=== PATIENT | female | born 1945 | race Caucasian/White ===

== ENCOUNTER 2020-12-18 12:45 | Outpatient (CLI) | payer MEDICARE | END 2020-12-18 12:46 | disposition home or self-care (01) | LOC: LAB.S 12:45 | PROVIDERS: ATTEND Physician Assistant Surgical | DX: R19.7 Diarrhea, unspecified (principal); R10.30 Lower abdominal pain, unspecified; R63.4 Abnormal weight loss; Z53.9 Procedure and treatment not carried out, unspecified reason ==

== ENCOUNTER 2020-12-18 13:00 | Outpatient (CLI) | payer MEDICARE | END 2020-12-18 23:59 | disposition home or self-care (01) | LOC: LAB.S 13:00 | PROVIDERS: ATTEND Physician Assistant Surgical | DX: R19.7 Diarrhea, unspecified (principal); R10.30 Lower abdominal pain, unspecified; R63.4 Abnormal weight loss | CPT/HCPCS: 36415; 85651 ==

== ENCOUNTER 2020-12-30 08:41 | Outpatient (CLI) | payer MEDICARE | END 2020-12-30 23:59 | disposition home or self-care (01) | LOC: LAB.R 08:41 | PROVIDERS: ATTEND Physician Assistant Surgical | DX: R19.7 Diarrhea, unspecified (principal) | CPT/HCPCS: 87329; 87493 ==

== ENCOUNTER 2021-01-05 08:00 | Outpatient (CLI) | payer MEDICARE | END 2021-01-05 23:59 | disposition home or self-care (01) | LOC: LAB.S 08:00 | PROVIDERS: ATTEND Physician Assistant Surgical | DX: R19.7 Diarrhea, unspecified (principal) | CPT/HCPCS: 87493 ==

== ENCOUNTER 2021-02-10 13:00 | Emergency (ER) | payer MEDICARE ==
[2021-02-10] MEDS ORDERED: SODIUM CHLORIDE 0.9% 1,000 ML IV STA ×2 (14:47→16:13)
[2021-02-10] MEDS ORDERED: HYDROmorphone 1 MG/ML CARPUJECT IVP STA (14:47)
[2021-02-10] MEDS ORDERED: ONDANSETRON 4 MG/2 ML VIAL IVP STA (14:47)
[2021-02-10 14:49] LABS: GLUCOSE, URINE (UA) NEGATIVE (NEGATIVE); KETONES,URINE (UA) TRACE mg/dL (NEGATIVE); LEUKOCYTE ESTERASE, URINE TRACE (NEGATIVE); NITRITE,URINE NEGATIVE (NEGATIVE); OCCULT BLOOD,URINE NEGATIVE (NEGATIVE); PROTEIN,URINE NEGATIVE (NEGATIVE); UROBILINOGEN,URINE 1 (NORMAL) E.U./dL (NORMAL)
--- NOTE | 2021-02-10 14:54 | ED Physician Documentation ---
History of Present Illness - Stated complaint Stated Complaint: RT SIDE/BACK PX - Chief complaint Chief Complaint: Back Pain - Additonal information Additional information: 75-year-old female who has a history of hypertension, diabetes, paroxysmal atrial fib who presents to the emergency department with 4 days of right-sided abdominal and low back pain. She reports that the pain is worse when laying flat. She denies any chest pain or dyspnea. She reports that she has some burning before she urinates but none during. She is also reporting 4 days of diarrhea. No melena or hematochezia. She reports she was supposed to have a colonoscopy on 01 January but due to very delays she canceled the procedure. She has never had a colonoscopy. Patient does have a history of spinal fusion in the lumbar region 2014 secondary to sciatica. She did sustain a DVT postoperatively. However she is no longer anticoagulated. She also underwent an ablation for her atrial fibrillation in 2013. She only occasionally has runs of atrial fib and is not having any new palpitations. Again she is not anticoagulated Patient is chronically debilitated secondary to the lumbar fusion. She has chronic lower extremity edema which is unchanged. She also has leg weakness for which she does see physical therapy. She denies any saddle anesthesia. No recent fevers. pmh: htn, dm, Paroxysmal atrial fib status post ablation 2013. meds: atenolol, metformin, losartan, levothyroxine, omeprazole We do note soft blood pressures here in the emergency department in the 90s and low 100s. Patient reports to this provider that she has always had low blood pressures and it is not uncommon for her to have measurements in the 80s even. She denies feeling short of air or dyspneic. No dizziness. Review of Systems Constitutional: denies: Fever, Chills, Myalgias Eyes: reports: Reviewed and negative Ears: reports: Reviewed and negative Nose: reports: Rhinorrhea / runny nose, Congestion Throat: reports: Reviewed and negative Cardiac: reports: Pedal edema (Chronic bilateral lower extremity edema unchanged). denies: Chest pain / pressure, Palpitations, Calf pain Respiratory: denies: Dyspnea, Cough GI: reports: Abdominal Pain, Nausea. denies: Vomiting, Constipation, Diarrhea : reports: Dysuria Skin: denies: Rash, Lesions Musculoskeletal: denies: Neck pain, Back pain Neurologic: denies: Generalized weakness, Focal weakness, Numbness PD PAST MEDICAL HISTORY - Present Medications Home Medications: Ambulatory Orders Medication Instructions Recorded Confirmed Ciprofloxacin HCl [Cipro] 500 mg PO BID #14 tablet 02/10/21 metroNIDAZOLE [Flagyl] 500 mg PO BID 7 Days #14 tablet 02/10/21 - Allergies Allergies/Adverse Reactions: Allergies Allergy/AdvReac Type Severity Reaction Status Date / Time ampicillin Allergy Rash Verified 02/10/21 13:13 cephalexin Allergy Rash Verified 02/10/21 13:13 clindamycin Allergy Rash Verified 02/10/21 13:13 iodine Allergy Rash Verified 02/10/21 13:13 Penicillins Allergy Rash Verified 02/10/21 13:13 PD ED PE EXPANDED - General General: Alert, Well developed/nourished, In Pain, Other (morbid obesity) - Neck Neck: Supple w/out meningeal sx. No: Adenopathy - Cardiac Cardiac: Regular Rate, Radial strong equal, Pedal strong equal, Cap refill < 2 sec. No: Murmur Present - Respiratory Respiratory: Clear to ausultation hamida. No: Distress, Labored - Abdomen Abdomen: Normal Bowel sounds, Tender to palpation (Tenderness to the right flank and right lower quadrant. Body exam is somewhat limited secondary to body habitus and excessively large pannus.) - Back Back: No: Vertebral tenderness (Noted lower lumbar surgical incision well approximated. No midline spinous process tenderness noted. No lower lumbar paraspinous tenderness elicited.), Soft tissue tenderness - Derm Derm: Normal color, Warm and dry. No: Rash - Extremities Extremities: Normal, Pedal edema bilateral (Bilateral lower extremity edema unchanged from baseline. 2+ significant anasarca). No: Deformity, Tenderness - Neuro Neuro: Alert and Oriented X 3, CNII-XII intact - GCS Eye Opening: Spontaneous Motor: Obeys Commands Verbal: Oriented Total: 15 Results - Vitals Vitals: Vital Signs - 24 hr 02/10/21 02/10/21 13:13 16:24 Temperature 36.5 C 36.7 C Heart Rate 60 63 Respiratory 16 18 Rate Blood Pressure 100/60 93/45 L O2 Saturation 98 100 Oxygen O2 Source Room air - EKG (time done) 1503 Rate: Rate (enter#) (56) Rhythm: NSR [place]: Normal Intervals: Normal NV, Prolonged QT QRS: Low voltage Ischemia: Normal ST segments, ST elevation c/w repol Compare to prior EKG: Old EKG unavailable Computer interpretation: Agree with computer - Labs Labs: Laboratory Tests 02/10/21 02/10/21 02/10/21 14:38 14:56 14:56 WBC 11.9 H RBC 3.59 L Hgb 10.5 L Hct 33.1 L MCV 92.2 MCH 29.2 MCHC 31.7 L RDW 16.0 H Plt Count 481 H MPV 8.4 Neut # (Auto) 9.7 H Lymph # (Auto) 1.4 L [place] # (Auto) 0.8 Eos # (Auto) 0.0 Baso # (Auto) 0.1 Absolute Nucleated RBC 0.00 Nucleated RBC % 0.0 Sodium 138 Potassium 3.7 Chloride 102 Carbon Dioxide 23 Anion Gap 13.0 BUN 14 Creatinine 0.7 Estimated GFR (MDRD) 82 L Glucose 107 H Lactic Acid Calcium 8.8 Total Bilirubin 1.0 AST 19 ALT 13 Alkaline Phosphatase 114 Total Protein 5.8 L Albumin 2.3 L Globulin 3.5 Albumin/Globulin Ratio 0.7 L Lipase 19 L TSH Urine Color DARK YELLOW Urine Clarity CLEAR Urine pH 5.0 Ur Specific [place] >=1.030 H Urine Protein NEGATIVE Urine Glucose (UA) NEGATIVE Urine Ketones TRACE Urine Occult Blood NEGATIVE Urine Nitrite NEGATIVE Urine Bilirubin NEGATIVE Urine Urobilinogen 1 (NORMAL) Ur Leukocyte Esterase TRACE H Urine RBC 0-5 Urine WBC 6-10 H Ur Squamous Epith Cells FEW Squamous Urine Bacteria Many H Urine Casts 0-2 Hyaline Casts Ur Microscopic Review INDICATED Urine Culture Comments INDICATED 02/10/21 02/10/21 14:56 14:56 WBC RBC Hgb Hct MCV MCH MCHC RDW Plt Count MPV Neut # (Auto) Lymph # (Auto) [place] # (Auto) Eos # (Auto) Baso # (Auto) Absolute Nucleated RBC Nucleated RBC % Sodium Potassium Chloride Carbon Dioxide Anion Gap BUN Creatinine Estimated GFR (MDRD) Glucose Lactic Acid 2.3 H Calcium Total Bilirubin AST ALT Alkaline Phosphatase Total Protein Albumin Globulin Albumin/Globulin Ratio Lipase TSH < 0.08 L Urine Color Urine Clarity Urine pH Ur Specific [place] Urine Protein Urine Glucose (UA) Urine Ketones Urine Occult Blood Urine Nitrite Urine Bilirubin Urine Urobilinogen Ur Leukocyte Esterase Urine RBC Urine WBC Ur Squamous Epith Cells Urine Bacteria Urine Casts Ur Microscopic Review Urine Culture Comments - Rads (name of study) CT head Radiology: Final report received (No acute intracranial process) CT abd Radiology: Final report received (Segmental wall thickening in the cecum and proximal ascending colon with pericolonic fat stranding. Findings are suggestive of a colitis. No evidence of nephrolithiasis, obstructive uropathy or appendicitis. Small bilateral pleural effusions.) PD MEDICAL DECISION MAKING - ED course Complexity details: reviewed results, re-evaluated patient, considered differential, d/w patient ED course: 75-year-old female who has a history of diabetes, paroxysmal atrial fibrillation reports to the ER with 4 days of what she called right lower back pain. However she has been having associated diarrhea as well as some dysuria. She denies any fevers or vomiting. She reports that she was to have a colonoscopy in early January [place] Today her screening labs show a very low leukocytosis of 11.9K. She does have a very very mild lactate elevation of 2.3. She was given a liter of fluid here in the ED. She does also have soft blood pressures here in the 90s over 40s and low 100s. I discussed this finding with the patient and she reports that she is always been told she has low blood pressures. She denies any chest pain or dyspnea. Her screening EKG shows a sinus rhythm with low voltage but no ischemic changes. She does take atenolol daily. We did discuss the possibility of observation admission, but pt feel like she would do better at home. Given the concerns of dysuria and diarrhea UA was completed that is suggestive of infection. A culture is pending. A noncontrast CT was obtained given her history of anaphylaxis to iodine and contrast. It does show an ascending colon enteritis. I discussed this findings with the patient. She will be started on Cipro as well as Flagyl for enteritis. This should also adequately treat a urinary tract infection. If her symptoms or not improving she will return immediately to the ER. Emergent return precautions were discussed. Departure - Departure Disposition: 01 Home, Self Care Clinical Impression: Enteritis, Cystitis Prescriptions: Ciprofloxacin HCl [Cipro] 500 mg PO BID #14 tablet metroNIDAZOLE [Flagyl] 500 mg PO BID 7 Days #14 tablet Comments: Jo-Ann you were seen today in the emergency department for what you reported as low right-sided back pain. You also had some mild urinary symptoms as well as some diarrhea for the last [address] scan of your abdomen shows some inflammation in your ascending colon. This is on the right side of your abdomen and likely explains the pain. Your urine is also suggestive of an infection. There is no magic button to make the diarrhea resolve overnight though if you would like to take 1 dose of Imodium this may help. However I do recommend that you fill the prescription for the antibiotics and begin taking them. You will take the Cipro and the Flagyl twice daily for the next week. If at any point you find that your symptoms are worsening, you have black or bloody stools, uncontrolled fevers or vomiting then please return immediately to the ER for a second look. It is very important that you do schedule a colonoscopy for follow-up when this diarrhea resolves. Your prescriptions were sent to the [id number] in [place]
[2021-02-10 14:57] LABS: BILIRUBIN,URINE NEGATIVE (NEGATIVE); ICTOTEST,URINE NEGATIVE
[2021-02-10 14:58] LABS: CLARITY,URINE CLEAR (CLEAR)
[2021-02-10 15:01] LABS: BASOPHILS # (AUTO) 0.1 10^3/uL (0.0-0.1); BASOPHILS % (AUTO) 0.4 %; EOSINOPHILS % (AUTO) 0.3 %; HCT - HEMATOCRIT 33.1 % (37.0-47.0); HGB - HEMOGLOBIN 10.5 g/dL (12.0-16.0); LYMPHOCYTES # (AUTO) 1.4 10^3/uL (1.5-3.5); LYMPHOCYTES % (AUTO) 11.4 %; MEAN CORPUSCULAR HEMOGLOBIN 29.2 pg (27.0-31.0); MEAN CORPUSCULAR HGB CONC 31.7 g/dL (32.0-36.0); MEAN CORPUSCULAR VOLUME 92.2 fL (81.0-99.0); MEAN PLATELET VOLUME 8.4 fL (7.9-10.8); MONOCYTES # (AUTO) 0.8 10^3/uL (0.0-1.0); MONOCYTES % (AUTO) 6.3 %; NEUTROPHILS # (AUTO) 9.7 10^3/uL (1.5-6.6); NEUTROPHILS % (AUTO) 81.1 %; PLT - PLATELET COUNT 481 10^3/uL (130-450); RED BLOOD COUNT 3.59 10^6/uL (4.20-5.40); WHITE BLOOD COUNT 11.9 x10^3/uL (4.8-10.8)
[2021-02-10] MEDS ORDERED: IOVERSOL 320 100 ML VIAL IVP ONE (15:10)
[2021-02-10 15:19] LABS: ALBUMIN 2.3 g/dL (3.2-5.5); ALBUMIN/GLOBULIN RATIO 0.7 (1.0-2.2); CALCIUM 8.8 mg/dL (8.5-10.3); CREATININE 0.7 mg/dL (0.4-1.0); POTASSIUM 3.7 mmol/L (3.5-5.0); TOTAL PROTEIN 5.8 g/dL (6.7-8.2)
[2021-02-10 15:22] LABS: BACTERIA,URINE Many /HPF (None Seen); RBC,URINE 0-5 /HPF (0-5); SQUAMOUS EPITHELIAL CELL,UR FEW Squamous (<= Few)
[2021-02-10 15:23] LABS: CASTS, URINE 0-2 Hyaline Casts /LPF
--- NOTE | 2021-02-10 16:16 | CT Report ---
PROCEDURE: HEAD WO INDICATIONS: fall one week ago TECHNIQUE: Noncontrast 4.5 mm thick angled axial sections acquired from the foramen magnum to the vertex. For r adiation dose reduction, the following was used: automated exposure control, adjustment of mA and/or kV according to patient size. COMPARISON: None. FINDINGS: Image quality: Excellent. CSF spaces: There is mild cerebral volume loss with prominence of the ventricles and sulci. Basal ci sterns are patent. No extra-axial fluid collections. Brain: No intracranial hemorrhage, mass, or mass effect. Bonilla-white matter interface is preserved. T here are periventricular and subcortical white matter hypodensities consistent with mild chronic smal l vessel ischemic changes. Skull and face: Calvarium and visualized facial bones are intact, without suspicious lesions. Sinuses: Visualized sinuses and mastoids are clear. IMPRESSION: 1. No acute intracranial modality. 2. Mild cerebral volume loss and chronic white matter small vessel ischemic changes. Reviewed by: Harry Bauer MD on 02/10/2021 4:14 PM PST Approved by: Harry Bauer MD on 02/10/2021 4:14 PM PST Station ID: [id number]
[2021-02-10 16:25] VITALS: BP 93/45
--- NOTE | 2021-02-10 16:29 | CT Report ---
PROCEDURE: Abdomen/Pelvis WO INDICATIONS: Abdominal pain, right flank/low back pain TECHNIQUE: Noncontrast 5 mm thick sections acquired from the diaphragms to the symphysis. 5 mm coronal and sagi ttal reformats were then performed. For radiation dose reduction, the following was used: automated exposure control, adjustment of mA and/or kV according to patient size. COMPARISON: None. FINDINGS: Image quality: There is metallic streak artifact from patient's surgical hardware in the lower lumbar spine. ABDOMEN: Lung bases: There are small bilateral pleural effusions and compressive atelectasis in the lung base s. Heart size is normal. Solid organs: Noncontrast evaluation of liver demonstrates no focal hepatic mass lesion. Gallbladder is surgically absent. Pancreas is normal in contours. No adrenal nodules. The spleen is normal in s ize. Kidneys demonstrate no hydronephrosis or renal stones there are bilateral small parapelvic renal cyst s. The ureters are nondistended. No ureteral stones.. Peritoneum and bowel: Small bowel loops demonstrate normal wall thickness and caliber. The appendix i s normal in appearance. There is segmental bowel wall thickening within the cecum and proximal ascend ing colon with mild pericolonic fat stranding. There is colonic diverticulosis without acute divertic ulitis. No free fluid or air. No fluid collections. Nodes and vessels: No retroperitoneal or mesenteric adenopathy by size criteria. Aorta and inferior vena cava are normal in caliber. Miscellaneous: There is a small right paracentral fat-containing ventral abdominal hernia. No evidenc e of herniated bowel loops. PELVIS: Genitourinary: Bladder wall thickness is normal. No bladder stones. The uterus is surgically absent. Miscellaneous: No inguinal hernias or adenopathy. Bones: There are postsurgical changes status post posterior fixation at L5-S1 with grade 2 anterolis thesis demonstrated. 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 No suspicious bony lesions. No verteb ral body compression fractures IMPRESSION: 1. Segmental wall thickening in the cecum and proximal ascending colon with pericolonic fat stranding . The findings are suggestive of a colitis. However, given the degree of wall thickening, an intramur al mass cannot be excluded. Recommend correlation clinically and further evaluation with colonoscopy if indicated. 2. No evidence of nephrolithiasis, obstructive uropathy, or appendicitis. 3. Small bilateral pleural effusions. Reviewed by: Harry Bauer MD on 02/10/2021 4:28 PM PST Approved by: Harry Bauer MD on 02/10/2021 4:28 PM PST Station ID: [id number]
[2021-02-10] MEDS ORDERED: HYDROcod/ACETAM 5/325 MG TABLET PO STA (17:53)
== END 2021-02-10 17:58 | disposition home or self-care (01) ==
LOC: ED 13:00
DX: K52.9 Noninfective gastroenteritis and colitis, unspecified (principal); N30.90 Cystitis, unspecified without hematuria; I10 Essential (primary) hypertension; E11.9 Type 2 diabetes mellitus without complications; I48.0 Paroxysmal atrial fibrillation; Z98.1 Arthrodesis status; Z86.718 Personal history of other venous thrombosis and embolism; Z79.84 Long term (current) use of oral hypoglycemic drugs; Z79.899 Other long term (current) drug therapy; Z91.81 History of falling
CPT/HCPCS: 36415; 70450; 74176; 80053; 81001; 83605; 83690; 84443; 85025; 87077; 87086; 87181; 93005; 96361; 96374; 99284; A9270; J1170; 81003

== ENCOUNTER 2021-03-21 18:28 | Outpatient (CLI) | payer MEDICARE | END 2021-03-21 18:29 | disposition critical access hospital (66) | LOC: EMS 18:28 | DX: Z04.3 Encounter for examination and observation following other accident (principal); R53.1 Weakness | CPT/HCPCS: A0425; A0429 ==

== ENCOUNTER 2021-03-21 19:00 | Inpatient (IN) | payer MEDICARE ==
[2021-03-21] MEDS ORDERED: SODIUM CHLORIDE 0.9% 1,000 ML IV STA ×2 (19:18→21:56)
[2021-03-21] MEDS ORDERED: ONDANSETRON 4 MG/2 ML VIAL IVP STA (19:27)
[2021-03-21 19:38] LABS: BASOPHILS % (AUTO) 0.3 %; EOSINOPHILS % (AUTO) 0.2 %; HCT - HEMATOCRIT 39.8 % (37.0-47.0); HGB - HEMOGLOBIN 12.6 g/dL (12.0-16.0); MEAN CORPUSCULAR HEMOGLOBIN 30.3 pg (27.0-31.0); MEAN CORPUSCULAR HGB CONC 31.7 g/dL (32.0-36.0); MEAN CORPUSCULAR VOLUME 95.7 fL (81.0-99.0); MONOCYTES % (AUTO) 6.4 %; NEUTROPHILS % (AUTO) 87.5 %; PLT - PLATELET COUNT 569 10^3/uL (130-450); RED BLOOD COUNT 4.16 10^6/uL (4.20-5.40); RED CELL DISTRIBUTION WIDTH 17.3 % (12.0-15.0); WHITE BLOOD COUNT 22.2 x10^3/uL (4.8-10.8)
--- NOTE | 2021-03-21 19:38 | ED Physician Documentation ---
History of Present Illness - Stated complaint Stated Complaint: WEAKNESS - Chief complaint Chief Complaint: Neuro - History obtained from History obtained from: Patient, EMS - Additonal information Additional information: Patient is a 76-year-old female presenting to the emergency department today with generalized weakness after fall. Past medical significant for diabetes, hypothyroidism, chronic back pain, atrial fibrillation status post cardiac ablation. EMS reports increasing weakness at home for the last several months. Today patient was try to get to the bathroom, slumped down onto the floor and was unable to rise. Reports severe nausea and vomiting as well as diarrhea that has been ongoing for several months. Reports decreased p.o. intake. Denies any head trauma, loss of consciousness, use of blood thinners, chest, back pain. Does endorse for generalized abdominal discomfort, associated with nausea vomiting. Review of Systems Ten Systems: 10 systems reviewed and negative Constitutional: reports: Fatigue. denies: Fever, Chills Eyes: denies: Loss of vision, Decreased vision Ears: denies: Loss of hearing, Ear pain Nose: denies: Rhinorrhea / runny nose, Foreign Body Throat: denies: Dental pain / toothache, Oral lesions / sores Cardiac: denies: Chest pain / pressure, Palpitations Respiratory: reports: Cough. denies: Dyspnea GI: reports: Nausea, Vomiting, Diarrhea. denies: Abdominal Pain : denies: Dysuria Skin: denies: Rash Neurologic: reports: Generalized weakness. denies: Focal weakness, Syncope, Seizure PD PAST MEDICAL HISTORY - Past Medical History Cardiovascular: Atrial fibrillation, Arrhythmia Respiratory: None Neuro: None Endocrine/Autoimmune: Type 2 diabetes, HyPOthyroidism GI: GERD, Ulcers, Chronic diarrhea HOSE BUILDER: None : Incontinence, Chronic bladder infection HEENT: None Psych: None Musculoskeletal: Fatigue, Chronic back pain Derm: None - Past Surgical History Past Surgical History: Yes General: Cholecystectomy Ortho: Other /HOSE BUILDER: Tubal ligation Cardiovascular: Other - Present Medications Home Medications: Ambulatory Orders Medication Instructions Recorded Confirmed Ciprofloxacin HCl [Cipro] 500 mg PO BID #14 tablet 02/10/21 HYDROcod/ACETAM 5/325 [[place] 5/325] 1 tablet PO BID PRN #10 tablet 02/10/21 metroNIDAZOLE [Flagyl] 500 mg PO BID 7 Days #14 tablet 02/10/21 - Allergies Allergies/Adverse Reactions: Allergies Allergy/AdvReac Type Severity Reaction Status Date / Time ampicillin Allergy Rash Verified 03/21/21 19:38 cephalexin Allergy Rash Verified 03/21/21 19:38 clindamycin Allergy Rash Verified 03/21/21 19:38 iodine Allergy Rash Verified 03/21/21 19:38 Penicillins Allergy Rash Verified 03/21/21 19:38 - Social History Does the pt smoke?: No Smoking Status: Former smoker Does the pt drink ETOH?: No Does the pt have substance abuse?: No - Immunizations Immunizations are current?: Yes - POLST Patient has POLST: No PD ED PE NORMAL - Vitals Vital signs reviewed: Yes (Patient tachycardic and irregular rhythm.) - General General: Other - HEENT HEENT: Atraumatic (Patient lays in gurney with eyes closed, not acutely distressed but appears uncomfortable.), PERRL, Other (Membranes dry) - Neck Neck: Supple, no meningeal sign - Respiratory Respiratory: No respiratory distress, Clear bilaterally - Abdomen Abdomen: Non tender, Non distended - Female Female : Other (External exam wnl) - Back Back: No spinal TTP, Other (Stage 2 sacral decub ulcer) - Derm Derm: Other (Extermities cold, stasis venous changes to lower extermities) - Extremities Extremities: No deformity - Neuro Neuro: Alert and oriented X 3, No motor deficit, Normal speech Eye Opening: Spontaneous Motor: Obeys Commands Verbal: Oriented GCS Score: 15 - Psych Psych: Normal mood PD ED PE EXPANDED - Cardiac Cardiac: Tachy. No: Cap refill < 2 sec Results - Vitals Vitals: Vital Signs - 24 hr 03/21/21 03/21/21 03/21/21 19:00 19:09 19:39 Temperature 36.4 C L Heart Rate 169 H 120 H 149 H Respiratory 24 29 H 17 Rate Blood Pressure 114/94 H 114/94 H 131/118 H O2 Saturation 94 93 98 03/21/21 03/21/21 03/21/21 19:52 20:09 20:30 Temperature 36.0 C L Heart Rate 152 H 143 H Respiratory 29 H 21 Rate Blood Pressure 172/100 H 106/86 H O2 Saturation 99 98 03/21/21 03/21/21 03/21/21 21:00 21:39 21:54 Temperature 36.4 C L Heart Rate 132 H 121 H 124 H Respiratory 19 20 24 Rate Blood Pressure 96/48 L 95/67 81/63 L O2 Saturation 98 98 98 03/21/21 03/21/21 03/21/21 22:00 22:30 22:56 Temperature Heart Rate 138 H 130 H 128 H Respiratory 24 17 22 Rate Blood Pressure 96/64 99/70 93/59 L O2 Saturation 98 99 100 03/21/21 03/21/21 03/21/21 23:00 23:23 23:30 Temperature 36.6 C Heart Rate 135 H 130 H 140 H Respiratory 118 H 19 12 Rate Blood Pressure 97/62 100/70 161/109 H O2 Saturation 98 99 97 03/21/21 03/22/21 03/22/21 23:53 00:09 00:19 Temperature 36.3 C L Heart Rate 140 H 145 H 137 H Respiratory 22 25 H 20 Rate Blood Pressure 93/66 87/63 L 86/53 L O2 Saturation 98 96 03/22/21 03/22/21 03/22/21 00:30 01:00 01:14 Temperature Heart Rate 145 H 150 H 149 H Respiratory 20 22 21 Rate Blood Pressure 117/50 L 115/52 L 88/61 L O2 Saturation 100 100 99 Oxygen O2 Source Room air - EKG (time done) 1937 Rate: Rate (enter#) (155) - Labs Labs: Laboratory Tests 03/21/21 03/21/21 03/21/21 00:50 00:50 19:31 WBC 22.2 H RBC 4.16 L Hgb 12.6 Hct 39.8 MCV 95.7 MCH 30.3 MCHC 31.7 L RDW 17.3 H Plt Count 569 H MPV 9.0 Neut # (Auto) Not Reportable Lymph # (Auto) Not Reportable Wilkes # (Auto) Not Reportable Eos # (Auto) Not Reportable Baso # (Auto) Not Reportable Absolute Nucleated RBC Not Reportable Total Counted 100 Band Neuts % (Manual) 3 Abnorm Lymph % (Manual) 0 Nucleated RBC % Not Reportable Neutrophils # (Manual) 20.9 H Lymphocytes # (Manual) 0.7 L Monocytes # (Manual) 0.7 Eosinophils # (Manual) 0.0 Basophils # (Manual) 0.0 Differential Comment MANUAL DIFFERENTIAL WBC Morphology NORMAL APPEARANCE Platelet Estimate INCREASED (>450,000) Platelet Morphology NORMAL APPEARANCE RBC Morph Micro Appear NORMAL APPEARANCE VBG pH VBG pCO2 VBG pO2 VBG HCO3 VBG Total CO2 VBG O2 Saturation VBG Base Excess Sodium Potassium Chloride Carbon Dioxide Anion Gap BUN Creatinine Estimated GFR (MDRD) Glucose Lactic Acid Cancelled Calcium Magnesium Total Bilirubin AST ALT Alkaline Phosphatase Total Creatine Kinase Troponin I High Sens Cancelled B-Natriuretic Peptide Total Protein Albumin Globulin Albumin/Globulin Ratio TSH Free T4 Urine Color Urine Clarity Urine pH Ur Specific [place] Urine Protein Urine Glucose (UA) Urine Ketones Urine Occult Blood Urine Nitrite Urine Bilirubin Urine Urobilinogen Ur Leukocyte Esterase Urine RBC Urine WBC Ur Squamous Epith Cells Urine Bacteria Urine Mucus Urine Culture Comments Nasal Adenovirus (PCR) Nasal B. parapertussis DNA (PCR) Nasal Coronavir 229E PCR Nasal Coronavir HKU1 PCR Nasal Coronavir NL63 PCR Nasal Coronavir OC43 PCR Nasal Enterovir/Rhinovir PCR Nasal Influenza B PCR Nasal Influenza A PCR Nasal Parainfluen 1 PCR Nasal Parainfluen 2 PCR Nasal Parainfluen 3 PCR Nasal Parainfluen 4 PCR Nasal RSV (PCR) Nasal B.pertussis DNA PCR Nasal C.pneumoniae (PCR) Devyn Human Metapneumo PCR Nasal M.pneumoniae (PCR) Nasal SARS-CoV-2 (PCR) 03/21/21 03/21/21 03/21/21 19:31 19:31 19:31 WBC RBC Hgb Hct MCV MCH MCHC RDW Plt Count MPV Neut # (Auto) Lymph # (Auto) Wilkes # (Auto) Eos # (Auto) Baso # (Auto) Absolute Nucleated RBC Total Counted Band Neuts % (Manual) Abnorm Lymph % (Manual) Nucleated RBC % Neutrophils # (Manual) Lymphocytes # (Manual) Monocytes # (Manual) Eosinophils # (Manual) Basophils # (Manual) Differential Comment WBC Morphology Platelet Estimate Platelet Morphology RBC Morph Micro Appear VBG pH VBG pCO2 VBG pO2 VBG HCO3 VBG Total CO2 VBG O2 Saturation VBG Base Excess Sodium 134 L Potassium 4.3 Chloride 94 L Carbon Dioxide 16 L Anion Gap 24.0 H BUN 18 Creatinine 1.3 H Estimated GFR (MDRD) 40 L Glucose 166 H Lactic Acid 8.1 H* Calcium 8.9 Magnesium Total Bilirubin 1.6 H AST 44 H ALT 16 Alkaline Phosphatase 107 Total Creatine Kinase 68 Troponin I High Sens 14.9 H* B-Natriuretic Peptide Total Protein 5.2 L Albumin 2.1 L Globulin 3.1 Albumin/Globulin Ratio 0.7 L TSH Free T4 Urine Color Urine Clarity Urine pH Ur Specific [place] Urine Protein Urine Glucose (UA) Urine Ketones Urine Occult Blood Urine Nitrite Urine Bilirubin Urine Urobilinogen Ur Leukocyte Esterase Urine RBC Urine WBC Ur Squamous Epith Cells Urine Bacteria Urine Mucus Urine Culture Comments Nasal Adenovirus (PCR) Nasal B. parapertussis DNA (PCR) Nasal Coronavir 229E PCR Nasal Coronavir HKU1 PCR Nasal Coronavir NL63 PCR Nasal Coronavir OC43 PCR Nasal Enterovir/Rhinovir PCR Nasal Influenza B PCR Nasal Influenza A PCR Nasal Parainfluen 1 PCR Nasal Parainfluen 2 PCR Nasal Parainfluen 3 PCR Nasal Parainfluen 4 PCR Nasal RSV (PCR) Nasal B.pertussis DNA PCR Nasal C.pneumoniae (PCR) Devyn Human Metapneumo PCR Nasal M.pneumoniae (PCR) Nasal SARS-CoV-2 (PCR) 03/21/21 03/21/21 03/21/21 19:31 19:31 19:31 WBC RBC Hgb Hct MCV MCH MCHC RDW Plt Count MPV Neut # (Auto) Lymph # (Auto) Wilkes # (Auto) Eos # (Auto) Baso # (Auto) Absolute Nucleated RBC Total Counted Band Neuts % (Manual) Abnorm Lymph % (Manual) Nucleated RBC % Neutrophils # (Manual) Lymphocytes # (Manual) Monocytes # (Manual) Eosinophils # (Manual) Basophils # (Manual) Differential Comment WBC Morphology Platelet Estimate Platelet Morphology RBC Morph Micro Appear VBG pH 7.384 VBG pCO2 24.7 L VBG pO2 23.9 L VBG HCO3 14.4 L VBG Total CO2 15.2 L VBG O2 Saturation 37.1 L VBG Base Excess -8.8 L Sodium Potassium Chloride Carbon Dioxide Anion Gap BUN Creatinine Estimated GFR (MDRD) Glucose Lactic Acid Calcium Magnesium Total Bilirubin AST ALT Alkaline Phosphatase Total Creatine Kinase Troponin I High Sens B-Natriuretic Peptide 422 H Total Protein Albumin Globulin Albumin/Globulin Ratio TSH < 0.08 L Free T4 Urine Color Urine Clarity Urine pH Ur Specific [place] Urine Protein Urine Glucose (UA) Urine Ketones Urine Occult Blood Urine Nitrite Urine Bilirubin Urine Urobilinogen Ur Leukocyte Esterase Urine RBC Urine WBC Ur Squamous Epith Cells Urine Bacteria Urine Mucus Urine Culture Comments Nasal Adenovirus (PCR) Nasal B. parapertussis DNA (PCR) Nasal Coronavir 229E PCR Nasal Coronavir HKU1 PCR Nasal Coronavir NL63 PCR Nasal Coronavir OC43 PCR Nasal Enterovir/Rhinovir PCR Nasal Influenza B PCR Nasal Influenza A PCR Nasal Parainfluen 1 PCR Nasal Parainfluen 2 PCR Nasal Parainfluen 3 PCR Nasal Parainfluen 4 PCR Nasal RSV (PCR) Nasal B.pertussis DNA PCR Nasal C.pneumoniae (PCR) Devyn Human Metapneumo PCR Nasal M.pneumoniae (PCR) Nasal SARS-CoV-2 (PCR) 03/21/21 03/21/21 03/21/21 19:31 19:38 19:55 WBC RBC Hgb Hct MCV MCH MCHC RDW Plt Count MPV Neut # (Auto) Lymph # (Auto) [place]kes # (Auto) Eos # (Auto) Baso # (Auto) Absolute Nucleated RBC Total Counted Band Neuts % (Manual) Abnorm Lymph % (Manual) Nucleated RBC % Neutrophils # (Manual) Lymphocytes # (Manual) Monocytes # (Manual) Eosinophils # (Manual) Basophils # (Manual) Differential Comment WBC Morphology Platelet Estimate Platelet Morphology RBC Morph Micro Appear VBG pH VBG pCO2 VBG pO2 VBG HCO3 VBG Total CO2 VBG O2 Saturation VBG Base Excess Sodium Potassium Chloride Carbon Dioxide Anion Gap BUN Creatinine Estimated GFR (MDRD) Glucose Lactic Acid Calcium Magnesium Total Bilirubin AST ALT Alkaline Phosphatase Total Creatine Kinase Troponin I High Sens B-Natriuretic Peptide Total Protein Albumin Globulin Albumin/Globulin Ratio TSH Free T4 3.36 H Urine Color DARK YELLOW Urine Clarity HAZY Urine pH 5.5 Ur Specific [place] 1.020 Urine Protein 30 H Urine Glucose (UA) 100 H Urine Ketones TRACE Urine Occult Blood NEGATIVE Urine Nitrite POSITIVE H Urine Bilirubin NEGATIVE Urine Urobilinogen 4 H Ur Leukocyte Esterase TRACE H Urine RBC 0-5 Urine WBC 4-5 Ur Squamous Epith Cells RARE Squamous Urine Bacteria Few Urine Mucus Marked Strands Urine Culture Comments INDICATED Nasal Adenovirus (PCR) NOT DETECTED Nasal B. parapertussis DNA (PCR) NOT DETECTED Nasal Coronavir 229E PCR NOT DETECTED Nasal Coronavir HKU1 PCR NOT DETECTED Nasal Coronavir NL63 PCR NOT DETECTED Nasal Coronavir OC43 PCR NOT DETECTED Nasal Enterovir/Rhinovir PCR NOT DETECTED Nasal Influenza B PCR NOT DETECTED Nasal Influenza A PCR NOT DETECTED Nasal Parainfluen 1 PCR NOT DETECTED Nasal Parainfluen 2 PCR NOT DETECTED Nasal Parainfluen 3 PCR NOT DETECTED Nasal Parainfluen 4 PCR NOT DETECTED Nasal RSV (PCR) NOT DETECTED Nasal B.pertussis DNA PCR NOT DETECTED Nasal C.pneumoniae (PCR) NOT DETECTED Devyn Human Metapneumo PCR NOT DETECTED Nasal M.pneumoniae (PCR) NOT DETECTED Nasal SARS-CoV-2 (PCR) NOT DETECTED 03/22/21 03/22/21 03/22/21 00:50 00:50 00:50 WBC RBC Hgb Hct MCV MCH MCHC RDW Plt Count MPV Neut # (Auto) Lymph # (Auto) Wilkes # (Auto) Eos # (Auto) Baso # (Auto) Absolute Nucleated RBC Total Counted Band Neuts % (Manual) Abnorm Lymph % (Manual) Nucleated RBC % Neutrophils # (Manual) Lymphocytes # (Manual) Monocytes # (Manual) Eosinophils # (Manual) Basophils # (Manual) Differential Comment WBC Morphology Platelet Estimate Platelet Morphology RBC Morph Micro Appear VBG pH VBG pCO2 VBG pO2 VBG HCO3 VBG Total CO2 VBG O2 Saturation VBG Base Excess Sodium Potassium Chloride Carbon Dioxide Anion Gap BUN Creatinine Estimated GFR (MDRD) Glucose Lactic Acid 1.4 Calcium Magnesium 1.3 L Total Bilirubin AST ALT Alkaline Phosphatase Total Creatine Kinase Troponin I High Sens 19.6 H* B-Natriuretic Peptide Total Protein Albumin Globulin Albumin/Globulin Ratio TSH Free T4 Urine Color Urine Clarity Urine pH Ur Specific [place] Urine Protein Urine Glucose (UA) Urine Ketones Urine Occult Blood Urine Nitrite Urine Bilirubin Urine Urobilinogen Ur Leukocyte Esterase Urine RBC Urine WBC Ur Squamous Epith Cells Urine Bacteria Urine Mucus Urine Culture Comments Nasal Adenovirus (PCR) Nasal B. parapertussis DNA (PCR) Nasal Coronavir 229E PCR Nasal Coronavir HKU1 PCR Nasal Coronavir NL63 PCR Nasal Coronavir OC43 PCR Nasal Enterovir/Rhinovir PCR Nasal Influenza B PCR Nasal Influenza A PCR Nasal Parainfluen 1 PCR Nasal Parainfluen 2 PCR Nasal Parainfluen 3 PCR Nasal Parainfluen 4 PCR Nasal RSV (PCR) Nasal B.pertussis DNA PCR Nasal C.pneumoniae (PCR) Devyn Human Metapneumo PCR Nasal M.pneumoniae (PCR) Nasal SARS-CoV-2 (PCR) Procedures - Central Line Central Line Preparation: Consent Obtained Central line location: Right IJ Central line type: Triple lumen Central line aftercare: Chlorhexidine disc placed, Secured, Placement confirmed, No pneumothorax, No complications PD MEDICAL DECISION MAKING - ED course Complexity details: reviewed old records, re-evaluated patient, considered differential, d/w patient ED course: Patient is a 76-year-old female presenting to the emergency department with generalized weakness after fall at home earlier this evening. Patient notably tachycardic on arrival to the emergency department and acutely distressed with cold and clammy extremities concerning for circulatory compromise. Warm blankets were applied and IV access was obtained. A sepsis protocol was initiated and blood cultures are pending at this time. Vancomycin and cefepime was ordered empirically. Patient received a 30 cc/kg bolus. Additionally received a 5 mg dose of Lopressor for rate control. Labs notably demonstrated a severe leukocytosis with a mild elevation in BUN and creatinine. Urine analysis was positive for nitrates and other indications of infection. CT of the abdomen pelvis demonstrated diverticulitis as well as other findings as outlined in radiology report above. Patient's blood pressures continued to decrease in the emergency department despite fluid resuscitation and it was necessary to place a central line in order to initiate vasopressor support. Her initial lactic of 8.1 was significantly improved at 1.3 on repeat. Her care was discussed with the hospitalist/intensive care service. At this time she will be hospitalized for further evaluation and treatment. - Critical Care Time Includes: Direct patient care, Review records, Reassess patient, Coordinate care Data interpretation: Labs, CXR, Prior EKG, Cardiac output Procedures excluded from critical care time: Central IV - Sepsis Event Sepsis Onset Time: 19:50 Current Stage of Sepsis: Sepsis Initial Hypotension: Not hypotensive Possible source of Sepsis: Unknown Mental/Cognitive Status: Alert/Oriented X3 Reason for not giving 30ml/kg crystalloid fluids: Not in septic shock Departure - Departure Disposition: 66 [facility] DC/Xfer Clinical Impression: Septic shock, Diverticulitis Condition: Serious Discharge Date/Time: 03/22/21 02:00
[2021-03-21 19:40] LABS: VBG BASE EXCESS -8.8 mmol/L (-2 - +2); VBG HCO3 14.4 mmol/L (23-28); VBG OXYGEN SATURATION 37.1 % (60-80); VBG PCO2 24.7 mmHg (41-51); VBG PH 7.384 (7.31-7.41); VBG PO2 23.9 mmHg (25-47); VBG TOTAL CO2 15.2 mmol/L (24-29)
[2021-03-21 19:41] LABS: ABNORMAL LYMPHS % (MANUAL) 0 %
[2021-03-21] MEDS ORDERED: CEFEPIME 2 GM in SODIUM CHLORIDE 0.9% MINIBAG 100 ML IV STA (19:53)
[2021-03-21] MEDS ORDERED: VANCOMYCIN INJ 1.25 GM in SODIUM CHLORIDE 0.9% 250 ML IV STA (19:53)
[2021-03-21] MEDS ORDERED: SODIUM CHLORIDE 0.9% 2,721.54 ML IV STA (19:57)
[2021-03-21 20:05] LABS: BAND NEUTROPHILS % (MANUAL) 3 %; DIFFERENTIAL COMMENT MANUAL DIFFERENTIAL; LYMPHOCYTES # (MANUAL) 0.7 10^3/uL (1.5-3.5); LYMPHOCYTES % (MANUAL) 3 %; MONOCYTES # (MANUAL) 0.7 10^3/uL (0.0-1.0); NEUTROPHILS # (MANUAL) 20.9 10^3/uL (1.5-6.6); PLATELET ESTIMATE, MANUAL INCREASED (>450,000) (NORMAL); PLATELET MORPHOLOGY NORMAL APPEARANCE (NORMAL); RBC MORPHOLOGY (MULTIPLE) NORMAL APPEARANCE (NORMAL); WBC MORPHOLOGY (MULTIPLE) NORMAL APPEARANCE (NORMAL)
[2021-03-21 20:06] LABS: LACTIC ACID, VENOUS 8.1 mmol/L (0.5-2.2)
[2021-03-21] MEDS ORDERED: VANCOMYCIN 1 GM VIAL ONE (20:11)
[2021-03-21 20:12] LABS: GLUCOSE, URINE (UA) 100 mg/dL (NEGATIVE); KETONES,URINE (UA) TRACE mg/dL (NEGATIVE); LEUKOCYTE ESTERASE, URINE TRACE (NEGATIVE); NITRITE,URINE POSITIVE (NEGATIVE); OCCULT BLOOD,URINE NEGATIVE (NEGATIVE); PH,URINE 5.5 PH (5.0-7.5); PROTEIN,URINE 30 mg/dL (NEGATIVE); UROBILINOGEN,URINE 4 E.U./dL (NORMAL)
[2021-03-21 20:23] LABS: BILIRUBIN,URINE NEGATIVE (NEGATIVE); CLARITY,URINE HAZY (CLEAR); ICTOTEST,URINE NEGATIVE
[2021-03-21 20:29] LABS: ALBUMIN 2.1 g/dL (3.2-5.5); ALBUMIN/GLOBULIN RATIO 0.7 (1.0-2.2); BILIRUBIN,TOTAL 1.6 mg/dL (0.2-1.0); CALCIUM 8.9 mg/dL (8.5-10.3); CREATININE 1.3 mg/dL (0.4-1.0); POTASSIUM 4.3 mmol/L (3.5-5.0); TOTAL PROTEIN 5.2 g/dL (6.7-8.2)
[2021-03-21] MEDS ORDERED: METOPROLOL 5 MG/5 ML VIAL IVP STA (20:31)
[2021-03-21 20:35] LABS: BACTERIA,URINE Few /HPF (None Seen); MUCUS,URINE Marked Strands; RBC,URINE 0-5 /HPF (0-5); SQUAMOUS EPITHELIAL CELL,UR RARE Squamous (<= Few)
[2021-03-21 20:36] LABS: B. PARAPERTUSSIS- RESP PCR PAN NOT DETECTED; B. PERTUSSIS- RESP PCR PANEL NOT DETECTED; C. PNEUMONIAE- RESP PCR PANEL NOT DETECTED; CORONAVIRUS 229E-RESP PCR NOT DETECTED; CORONAVIRUS HKU1-RESP PCR NOT DETECTED; CORONAVIRUS NL63-RESP PCR NOT DETECTED; CORONAVIRUS OC43-RESP PCR NOT DETECTED; HUMAN METAPNEUMOVIRUS NOT DETECTED; INFLUENZA A- RESP PCR PANEL NOT DETECTED; INFLUENZA B - RESP PCR PANEL NOT DETECTED; M. PNEUMONIAE- RESP PCR PANEL NOT DETECTED; PARAINFLUENZA VIRUS 1 NOT DETECTED; PARAINFLUENZA VIRUS 2 NOT DETECTED; PARAINFLUENZA VIRUS 3 NOT DETECTED; PARAINFLUENZA VIRUS 4 NOT DETECTED; RHINOVIRUS/ENTEROVIRUS NOT DETECTED; RSV- RESP PCR PANEL NOT DETECTED; SARS-CoV-2 -RESP PCR PANEL NOT DETECTED
--- NOTE | 2021-03-21 20:42 | XRAY Report ---
PROCEDURE: Chest 1 View X-Ray INDICATIONS: chest pain TECHNIQUE: One view of the chest was acquired. COMPARISON: None FINDINGS: Surgical changes and devices: None. Lungs and pleura: No pleural effusions or pneumothorax. Lungs are clear. Mediastinum: Mediastinal contours appear normal. Heart size is normal. Bones and chest wall: No suspicious bony lesions. Overlying soft tissues appear unremarkable. IMPRESSION: No acute process. Reviewed by: Bhargav Bar MD on 03/21/2021 8:41 PM [facility] Approved by: Bhargav Bar MD on 03/21/2021 8:41 PM [facility] Station ID: [id number]
--- NOTE | 2021-03-21 21:54 | CT Report ---
PROCEDURE: CT brain without contrast INDICATIONS: Fall, weaknes TECHNIQUE: Noncontrast 4.5 mm thick angled axial sections acquired from the foramen magnum to the vertex. For r adiation dose reduction, the following was used: automated exposure control, adjustment of mA and/or kV according to patient size. COMPARISON: None. FINDINGS: Image quality: Excellent. CSF spaces: Basal cisterns are patent. No extra-axial fluid collections. Ventricles are normal in size and shape. Brain: No midline shift. No intracranial masses or hemorrhage. Bonilla-white matter interface is norm al. Moderate atrophy and multifocal white matter chronic ischemic change noted. Atherosclerotic vascu lar calcification noted in the cavernous segments of both internal carotid arteries as well as the in tradural vertebral arteries. Skull and face: Calvarium and visualized facial bones are intact, without suspicious lesions. Sinuses: Visualized sinuses and mastoids are clear. IMPRESSION: Atrophy and chronic ischemic change without acute hemorrhage or mass effect Reviewed by: Omega Cruz MD on 03/21/2021 8:53 PM [facility] Approved by: Omega Cruz MD on 03/21/2021 8:53 PM [facility] Station ID: [id number]
--- NOTE | 2021-03-21 21:57 | CT Report ---
PROCEDURE: Abdomen/Pelvis WO INDICATIONS: N/V/D abd pn TECHNIQUE: Noncontrast 5 mm thick sections acquired from the diaphragms to the symphysis. 5 mm coronal and sagi ttal reformats were then performed. For radiation dose reduction, the following was used: automated exposure control, adjustment of mA and/or kV according to patient size. COMPARISON: None. FINDINGS: Image quality: Excellent. ABDOMEN: Lung bases: Lung bases are clear. Heart size is normal. Mild calcification of the coronary vascula ture. Solid organs: Liver and spleen are normal in size. Gallbladder surgically absent Pancreas is charles l in contours. No adrenal nodules. Kidneys are normal in size, without hydronephrosis or nephrolith iasis. Peritoneum and bowel: Small hiatal hernia. Moderate nodular thickening of the cecum and proximal asc ending colon. There is focal thickening of the distal descending colon. Diverticulosis of the descend ing colon. Mild fast rating surrounding the distal descending colon. Unenhanced bowel loops demonstra te otherwise normal wall thickness and caliber. No free fluid or air. Nodes and vessels: No retroperitoneal or mesenteric adenopathy by size criteria. Aorta and inferior vena cava are normal in caliber. Miscellaneous: No ventral hernias. PELVIS: Genitourinary: Decompressed. Mcneal catheter present. Miscellaneous: No inguinal hernias or adenopathy. Bones: L5-S1 fusion has been performed. No suspicious bony lesions. There is mild subacute appearing T12 compression fracture, new since the prior examination. IMPRESSION: 1. No evidence of urinary tract calcification, nor obstruction. 2. Findings suggestive of distal descending colon diverticulitis. 3. Thickening of the cecum and proximal ascending colon; while this may represent infection or inflam mation, further assessment with colonoscopy is recommended to assess for neoplasm. 4. New subacute T12 compression fracture. Initial further assessment with nonemergent outpatient foll ow-up MRI is recommended. Reviewed by: Bhargav Bar MD on 03/21/2021 9:56 PM [facility] Approved by: Bhargav Bar MD on 03/21/2021 9:56 PM [facility] Station ID: [id number]
[2021-03-21] MEDS ORDERED: LORazepam 2 MG/ML VIAL IVP STA (23:27)
--- NOTE | 2021-03-22 01:02 | XRAY Report ---
PROCEDURE: Chest 1 View X-Ray INDICATIONS: line placement TECHNIQUE: One view of the chest was acquired. COMPARISON: None FINDINGS: Surgical changes and devices: Right IJ venous line tip in the mid SVC. No pneumothorax. Lungs and pleura: No pleural effusions or pneumothorax. Lungs are clear. Mediastinum: Mediastinal contours appear normal. Heart size is normal. Bones and chest wall: No suspicious bony lesions. Overlying soft tissues appear unremarkable. IMPRESSION: No acute cardiopulmonary findings Right IJ central venous line tip in the mid SVC. Reviewed by: Omega Cruz MD on 03/22/2021 12:01 AM [facility] Approved by: Omega Cruz MD on 03/22/2021 12:01 AM [facility] Station ID: [id number]
[2021-03-22] MEDS ORDERED: DIGOXIN 500 MCG/2 ML AMP IVP STA (01:23)
--- NOTE | 2021-03-22 01:31 | HISTORY & PHYSICAL EXAMINATION ---
Chief Complaint - Chief Complaint Chief Complaint: feel from being weak, on floor 2 hours History of Present Illness - Admitted From Admitted From:: ED - History Obtained From History obtained from: ED provider and the patient - History of Present Illness HPI Comment/Other: This is a 76-year-old white female with a history of A. fib not on anticoagulation, recurrent UTIs, chronic low back pain. She was on Zithromax in [facility]. She has been experiencing some nausea, vomiting but frequent diarrhea for 2 weeks and has had no oral intake for the last 2 days, nor has she been out of bed for about 2 days. Today while trying to walk, she felt weak and slumped to the ground. There was no trauma. She was on the ground approximately 2 hours. EMS was called and she was found to be hypotensive and tachycardic at the scene. In the ER her heart rate was 150 in A. fib and blood pressure normal until she received a Lopressor IV push and then she became hypotensive. She is found to have septic shock with a lactic acid level of 8, GABRIEL with a creatinine of 1.3, dehydration, Mcneal has been inserted and there has been no urine output. She has received over 3L of crystalloid fluids. Imaging of the abdomen showed diverticulitis. She has received doses of vancomycin, cefepime and Flagyl. A right IJ was inserted by the ED provider, she has been started on a Levophed drip and her BP improved to 115/50 and she is being admitted to the ICU. We discussed her code wishes and she wishes to be a Full Code. 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 - Substance History Use: Uses substance without health or social issues: NONE - POLST Patient has POLST: No Meds/Allgy - Home Medications Home Medications: Ambulatory Orders Medication Instructions Recorded Confirmed Ciprofloxacin HCl [Cipro] 500 mg PO BID #14 tablet 02/10/21 HYDROcod/ACETAM 5/325 [Satin 5/325] 1 tablet PO BID PRN #10 tablet 02/10/21 metroNIDAZOLE [Flagyl] 500 mg PO BID 7 Days #14 tablet 02/10/21 - Allergies Allergies/Adverse Reactions: Allergies Allergy/AdvReac Type Severity Reaction Status Date / Time ampicillin Allergy Rash Verified 03/21/21 19:38 cephalexin Allergy Rash Verified 03/21/21 19:38 clindamycin Allergy Rash Verified 03/21/21 19:38 iodine Allergy Rash Verified 03/21/21 19:38 Penicillins Allergy Rash Verified 03/21/21 19:38 Review of Systems - Constitutional Constitutional: reports: Weakness, Poor appetite (she is very thirsty), Weight loss (She has lost 30 pounds in the past 2 months because of poor appetite and the diarrhea.) - Cardiovascular Cariovascular: reports: Palpitations - Gastrointestinal Gastrointestinal: reports: Diarrhea, Nausea, Vomiting - Integumentary Integumentary: reports: Other (venous stasis changes of shins, stage 2 decubitus ulcer of sacrum noted by ED provider) Exam - Vital Signs Vital Signs: Vital Signs x48h Temp Pulse Resp BP Pulse Ox 03/22/21 01:14 149 H 21 88/61 L 99 03/22/21 01:00 150 H 22 115/52 L 100 03/22/21 00:30 145 H 20 117/50 L 100 03/22/21 00:19 137 H 20 86/53 L 96 03/22/21 00:09 145 H 25 H 87/63 L 03/21/21 23:53 36.3 C L 140 H 22 93/66 98 03/21/21 23:30 140 H 12 161/109 H 97 03/21/21 23:23 130 H 19 100/70 99 03/21/21 23:00 36.6 C 135 H 118 H 97/62 98 03/21/21 22:56 128 H 22 93/59 L 100 03/21/21 22:30 130 H 17 99/70 99 03/21/21 22:00 138 H 24 96/64 98 03/21/21 21:54 124 H 24 81/63 L 98 03/21/21 21:39 36.4 C L 121 H 20 95/67 98 03/21/21 21:00 132 H 19 96/48 L 98 03/21/21 20:30 143 H 21 106/86 H 98 03/21/21 20:09 152 H 29 H 172/100 H 99 03/21/21 19:52 36.0 C L 03/21/21 19:39 149 H 17 131/118 H 98 03/21/21 19:09 120 H 29 H 114/94 H 93 03/21/21 19:00 36.4 C L 169 H 24 114/94 H 94 - Physical Exam General Appearance: positive: No acute distress, Alert, Other (Obese, wearing a wool hat (to stay warm)) Eyes Bilateral: positive: Normal inspection, EOMI ENT: positive: ENT inspection nml, Dry mucous membranes Neck: positive: Nml inspection, No JVD Respiratory: positive: No respiratory distress, Breath sounds nml Cardiovascular: positive: No murmur, Irregularly irregular, Tachycardia Abdomen: positive: Non-tender, Nml bowel sounds, No distention Skin: positive: Warm, Dry Extremities: positive: Non-tender, Other (Trace pretibial edema) Neurologic/Psychiatric: positive: Oriented x3, Motor nml Sepsis Event Note (H) - Evaluation Current Stage of Sepsis: Septic shock Possible source of Sepsis: positive: GI tract/intra-abdominal, Genitourinary, Unknown - Sepsis Criteria Sepsis Criteria: Recorded Heart Rate greater than 90 bpm, WBC count greater than 12,000 or less than 4000, MAP less than 65 mmHg, SBP less than 90 mmHg, Renal: urine output less than 0.5ml/kg/hr for 2 hours or creatinine gr, Metabolic: lactate > 2 mmol/L Conclusion/Plan - Problem List (1) Septic shock Conclusion/Plan: This patient presents with hypotension, tachycardic, with elevated white blood count, and very elevated lactic acid level. She received aggressive resuscitation with crystalloid starting in the ED. The source appears to be colitis and a UTI. She has been started on empiric antibiotics with Vanco, cefepime and Flagyl. Await blood culture results and urine culture results to tailor antibiotics. We will continue with fluids for resuscitation and pressors (Levophed) for blood pressure support and remain in the ICU. (2) Diverticulitis Conclusion/Plan: Patient reports one prior episode like this several months ago. We will continue with cefepime and Flagyl, clear liquids for bowel rest and continue with IV fluids. We will order C. difficile and if negative will start Imodium as needed (3) Enteritis Conclusion/Plan: Weeks of intermittent nausea and vomiting. We will give IV antiemetics. We will order clear liquids only for a diet. (4) Cystitis Conclusion/Plan: This may be secondary to 2 weeks of diarrhea. She has been started on empiric antibiotics to cover gram-negative's for a urinary source. Await blood culture and urine culture results to tailor antibiotics (5) Atrial fibrillation with RVR Conclusion/Plan: Of A. fib and now has RVR likely from the hypovolemia and shock. We will give dig dose IV, follow levels, continue to dose dig for rate control. Her TSH was very low and her free T4 has already been done in shows excessively high levels. If she is on a home dose of thyroid medication (given her history of hypothyroidism), this needs to be reduced. 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 Her TSH was very low and her free T4 has already been done in shows excessively high levels. If she is on a home dose of thyroid medication (given her history of hypothyroidism), this needs to be reduced. When blood pressure can tolerate it, will add alpha and beta-blockers if this is thyroid storm. (7) GABRIEL (acute kidney injury) Conclusion/Plan: Evaded at 1.3 which is consistent with ATN from hypovolemia related to nausea vomiting dehydration. Avoid nephrotoxins. Continue with IV fluid resuscitation. Follow BMP daily (8) Sacral decubitus ulcer, stage II Conclusion/Plan: Will order topical nursing care, Turn and reposition, And out of bed when the blood pressure will tolerate it. (9) Weakness generalized Conclusion/Plan: With 2 weeks of fluid losses from nausea vomiting diarrhea, now septic shock, she has marked weakness. She will need PT and OT ordered when vital signs have stabilized - Lab Results Fish Bones: 03/21/21 19:31 03/21/21 19:31 - Diagnostic Imaging Results Diagnostic Imaging Results: positive: Final report reviewed - Other Other Results/Comments: Station: The patient is expected to be discharged or transferred to another facility within 96 hours: Yes.
[2021-03-22] MEDS: SODIUM CHLORIDE 0.9% 1,000 ML IV SCH ×3 (02:16→20:40)
[2021-03-22] MEDS: SODIUM CHLORIDE FLUSH 0.9% 10 ML SYRINGE IVP PRN ×10 (02:21→20:39)
[2021-03-22] MEDS: ONDANSETRON 4 MG/2 ML VIAL IVP PRN (05:02)
[2021-03-22 05:14] LABS: BASOPHILS % (AUTO) 0.2 %; HCT - HEMATOCRIT 31.2 % (37.0-47.0); HGB - HEMOGLOBIN 10.1 g/dL (12.0-16.0); LYMPHOCYTES # (AUTO) 1.7 10^3/uL (1.5-3.5); LYMPHOCYTES % (AUTO) 9.9 %; MEAN CORPUSCULAR HEMOGLOBIN 30.3 pg (27.0-31.0); MEAN CORPUSCULAR HGB CONC 32.4 g/dL (32.0-36.0); MEAN CORPUSCULAR VOLUME 93.7 fL (81.0-99.0); MEAN PLATELET VOLUME 9.2 fL (7.9-10.8); MONOCYTES # (AUTO) 1.4 10^3/uL (0.0-1.0); MONOCYTES % (AUTO) 8.2 %; NEUTROPHILS # (AUTO) 13.6 10^3/uL (1.5-6.6); NEUTROPHILS % (AUTO) 81.3 %; PLT - PLATELET COUNT 470 10^3/uL (130-450); RED BLOOD COUNT 3.33 10^6/uL (4.20-5.40); RED CELL DISTRIBUTION WIDTH 17.5 % (12.0-15.0); WHITE BLOOD COUNT 16.8 x10^3/uL (4.8-10.8)
[2021-03-22 05:25] LABS: CALCIUM 7.5 mg/dL (8.5-10.3); CREATININE 1.2 mg/dL (0.4-1.0); MAGNESIUM 1.3 mg/dL (1.7-2.8); PHOSPHORUS 3.1 mg/dL (2.5-4.6); POTASSIUM 3.4 mmol/L (3.5-5.0)
[2021-03-22 05:28] LABS: DIGOXIN 1.8 ng/mL
[2021-03-22] MEDS: SODIUM CHLORIDE 0.9% 500 ML IV PRN (07:04)
[2021-03-22] MEDS: MAGNESIUM SULFATE 2 GRAM 2 GM/50 ML BAG IV SCH ×2 (07:04→08:10)
[2021-03-22] MEDS: POTASSIUM CHLOR 20 MEQ/100 ML 20 MEQ/100 ML BAG IV SCH ×4 (07:04→17:33)
[2021-03-22] MEDS: metroNIDAZOLE 500 MG/100 ML 500 MG/100 ML BAG IV SCH ×4 (08:08→23:46)
[2021-03-22] MEDS: SODIUM CHLORIDE FLUSH 0.9% 10 ML SYRINGE IVP SCH ×3 (08:32→20:38)
[2021-03-22 08:40] LABS: CALCIUM, IONIZED 1.08 mmol/L (1.15-1.33); VBG PH 7.405 (7.31-7.41)
[2021-03-22 08:42] LABS: INR 1.1 (0.8-1.2); PT - PROTHROMBIN TIME 12.4 secs (9.9-12.6)
[2021-03-22] MEDS: CEFEPIME 2 GM in SODIUM CHLORIDE 0.9% MINIBAG 100 ML IV SCH ×2 (09:39→20:39)
[2021-03-22] MEDS: PANTOPRAZOLE 40 MG VIAL IVP SCH ×2 (09:47→20:38)
[2021-03-22] MEDS: DIGOXIN 500 MCG/2 ML AMP IVP SCH ×2 (09:49→09:51)
--- NOTE | 2021-03-22 11:21 | PHARMACY PROGRESS NOTE ---
- Best Possible Medication History Admit Date and Time: 03/22/21 0116 Processed by: Pharmacy Medication History completed: Yes Patient Interview: Completed As the person ultimately responsible for medication therapy, providers are able to order a medication from an existing home medication list in [facility] via the "Reconcile Routine" prior to Confirmation of that medication by microcomputer support specialist. Such practice is discouraged except when the physician, in their clinical jesse gment, deems that a medical need exists for a medication without regard to previous use.
[2021-03-22] MEDS: CALCIUM CARBONATE CHEW 500 MG TABLET PO SCH ×3 (12:56→22:15)
[2021-03-22 13:10] LABS: CALCIUM 7.4 mg/dL (8.5-10.3); CREATININE 1.3 mg/dL (0.4-1.0); POTASSIUM 3.5 mmol/L (3.5-5.0)
[2021-03-22] MEDS: SACCHAROMYCES BOULARDII 250 MG CAPSULE PO SCH (17:28)
--- NOTE | 2021-03-22 19:28 | PROVIDER PROGRESS NOTE ---
Hospitalist Cross-cover Note - Cross-Cover Note Cross-Cover Note: The patient informed today that she would like to be a DNR after discussion with her son. We discussed what entails of CPR and her current medical condition which include septic shock secondary to suspected UTI or diverticulitis. We discussed that she is currently requiring norepinephrine although her requirements are improving. After this discussion, she confirms that she would like to be a DNR and I will change her CODE STATUS in the computer.
[2021-03-22 20:51] LABS: CALCIUM, IONIZED 1.11 mmol/L (1.15-1.33); VBG PH 7.407 (7.31-7.41)
[2021-03-22] MEDS ORDERED: POTASSIUM CHLOR 20 MEQ/100 ML 20 MEQ/100 ML BAG IV ONE (22:00)
[2021-03-23] MEDS: CALCIUM CARBONATE CHEW 500 MG TABLET PO SCH (02:04)
[2021-03-23] MEDS: SODIUM CHLORIDE 0.9% 1,000 ML IV SCH ×3 (02:05→21:44)
[2021-03-23] MEDS: SODIUM CHLORIDE FLUSH 0.9% 10 ML SYRINGE IVP SCH ×3 (04:59→21:39)
[2021-03-23] MEDS: SODIUM CHLORIDE FLUSH 0.9% 10 ML SYRINGE IVP PRN ×3 (04:59→23:39)
[2021-03-23 05:11] LABS: CALCIUM, IONIZED 1.13 mmol/L (1.15-1.33); VBG PH 7.409 (7.31-7.41)
[2021-03-23 05:13] LABS: CALCIUM 7.4 mg/dL (8.5-10.3); CREATININE 0.9 mg/dL (0.4-1.0); POTASSIUM 3.7 mmol/L (3.5-5.0)
[2021-03-23 05:15] LABS: BASOPHILS % (AUTO) 0.4 %; EOSINOPHILS % (AUTO) 0.3 %; HCT - HEMATOCRIT 27.7 % (37.0-47.0); HGB - HEMOGLOBIN 9.1 g/dL (12.0-16.0); LYMPHOCYTES # (AUTO) 1.4 10^3/uL (1.5-3.5); LYMPHOCYTES % (AUTO) 15.1 %; MEAN CORPUSCULAR HEMOGLOBIN 30.8 pg (27.0-31.0); MEAN CORPUSCULAR HGB CONC 32.9 g/dL (32.0-36.0); MEAN CORPUSCULAR VOLUME 93.9 fL (81.0-99.0); MEAN PLATELET VOLUME 8.6 fL (7.9-10.8); MONOCYTES # (AUTO) 0.7 10^3/uL (0.0-1.0); MONOCYTES % (AUTO) 7.5 %; NEUTROPHILS # (AUTO) 7.2 10^3/uL (1.5-6.6); NEUTROPHILS % (AUTO) 76.3 %; PLT - PLATELET COUNT 339 10^3/uL (130-450); RED BLOOD COUNT 2.95 10^6/uL (4.20-5.40); RED CELL DISTRIBUTION WIDTH 17.5 % (12.0-15.0); WHITE BLOOD COUNT 9.5 x10^3/uL (4.8-10.8)
[2021-03-23 05:19] LABS: DIGOXIN 0.9 ng/mL
[2021-03-23] MEDS ORDERED: POTASSIUM CHLOR 20 MEQ/100 ML 20 MEQ/100 ML BAG IV ONE (06:00)
--- NOTE | 2021-03-23 07:21 | PROVIDER PROGRESS NOTE ---
Subjective - Prog Note Date Prog Note Date: 03/23/21 - Subjective Subjective: She feels better overall but is concerned about her voice being weaker today. She believes she may have aspirated overnight when she was eating something and began to cough. She states her voice is quite weak since then. She denies any dyspnea. She has no more diarrhea. Current Medications - Current Medications Current Medications: Active Medications Digoxin (Digoxin 500 Mcg/2 Ml Amp) 250 mcg IVP 0900 [facility] Last Admin: 03/23/21 08:36 Dose: 250 mcg Documented by: Enoxaparin Sodium (Enoxaparin 40 Mg/0.4 Ml Syringe) 40 mg SUBQ DAILY [facility] Last Admin: 03/23/21 08:37 Dose: 40 mg Documented by: Metronidazole (Flagyl 500 Mg/100 Ml) 500 mg in 100 mls @ 100 mls/hr IV Q8H [facility] Last Admin: 03/23/21 08:50 Dose: 100 mls/hr Documented by: Sodium Chloride (Normal Saline 0.9%) 1,000 mls @ 125 mls/hr IV .Q8H [facility] Last Infusion: 03/23/21 08:00 Dose: 125 mls/hr Documented by: Norepinephrine Bitartrate 8 mg (/ Dextrose) 250 mls @ 15 mls/hr IV .[id number] [facility]; Protocol Last Titration: 03/23/21 08:00 Dose: 8 mcg/min, 15 mls/hr Documented by: Sodium Chloride (Normal Saline 0.9%) 500 mls @ 20 mls/hr IV Q24H PRN PRN Reason: TKO RATE Last Infusion: 03/23/21 08:00 Dose: 20 mls/hr Documented by: Cefepime HCl 2 gm/ Sodium (Chloride) 100 mls @ 200 mls/hr IV BID [facility] Last Admin: 03/23/21 08:36 Dose: 200 mls/hr Documented by: Loperamide HCl (Loperamide 2 Mg Capsule) 2 mg PO QID PRN PRN Reason: Diarrhea Multivitamins (Multivitamin Tablet) 1 tab PO DAILYWM [facility] Last Admin: 03/23/21 08:36 Dose: 1 tab Documented by: Ondansetron HCl (Ondansetron 4 Mg/2 Ml Vial) 4 mg IVP Q6HR PRN PRN Reason: Nausea / Vomiting Last Admin: 03/22/21 05:02 Dose: 4 mg Documented by: Pantoprazole Sodium (Pantoprazole 40 Mg Vial) 40 mg IVP BID [facility] Last Admin: 03/23/21 08:37 Dose: 40 mg Documented by: Prochlorperazine Edisylate (Prochlorperazine 10 Mg/2 Ml Vial) 10 mg IVP Q6HR PRN PRN Reason: Nausea / Vomiting Saccharomyces Boulardii (Saccharomyces Boulardii 250 Mg Capsule) [facility] PO [facility] Last Admin: 03/23/21 08:36 Dose: 250 mg Documented by: Sodium Chloride (Sodium Chloride Flush 0.9% 10 Ml Syringe) 10 ml IVP 0100,0900,1700 [facility] Last Admin: 03/23/21 04:59 Dose: 10 ml Documented by: Sodium Chloride (Sodium Chloride Flush 0.9% 10 Ml Syringe) 10 ml IVP PRN PRN PRN Reason: NEEDED PER PROVIDER ORDERS Last Admin: 03/23/21 05:00 Dose: 10 ml Documented by: Sodium Chloride (Sodium Chloride Flush 0.9% 10 Ml Syringe) 20 ml IVP PRN PRN PRN Reason: After Blood Draw Last Admin: 03/23/21 04:59 Dose: 20 ml Documented by: Levothyroxine Sodium 137 mcg PO DAILY 03/22/21 Lovastatin 20 mg PO QPM 03/22/21 Metformin HCl [Metformin ER Gastric] 500 mg PO QPM 03/22/21 atenoloL [Tenormin] 50 mg PO QPM 03/22/21 Objective - Vital Signs/Intake & Output Reviewed Vital Signs: Yes Vital Signs: Vital Signs Temp Pulse Resp BP Pulse Ox 03/23/21 07:04 95 18 109/61 97 03/23/21 06:48 98.8 C H 100 18 109/65 99 03/23/21 05:56 98.7 C H 99 19 114/72 97 03/23/21 05:00 98.9 C H 103 H 18 114/62 98 03/23/21 04:00 106 H 23 113/67 98 Intake & Output: Intake & Output 03/20/21 03/21/21 03/22/21 03/23/21 23:59 23:59 23:59 23:59 Intake Total 5081.54 5531.813 879.480 Output Total 907 1330 Balance 5081.54 4624.813 -450.520 - Objective General Appearance: positive: No acute distress, Alert Eyes Bilateral: positive: Normal inspection, Conjunctivae nml ENT: positive: ENT inspection nml, Pharynx nml. negative: Purulent nasal drainage, Pharyngeal erythema, Oral lesions Neck: positive: Nml inspection Respiratory: positive: No respiratory distress. negative: Wheezes, Rales Cardiovascular: positive: Irregularly irregular. negative: Tachycardia, Systolic murmur Abdomen: positive: Non-tender, Nml bowel sounds, No distention. negative: Tenderness Skin: positive: Warm, Dry Extremities: positive: Pedal edema (+1 in left lower extremity at the ankle.) Neurologic/Psychiatric: negative: Disoriented to person, Disoriented to place - Lab Results Fish Bones: 03/23/21 04:56 03/23/21 04:56 Other Labs: Lab Results x24hrs 03/23/21 03/23/21 03/23/21 Range/Units 04:56 04:56 04:56 WBC (4.8-10.8) x10^3/uL RBC (4.20-5.40) 10^6/uL Hgb (12.0-16.0) g/dL Hct (37.0-47.0) % MCV (81.0-99.0) fL MCH (27.0-31.0) pg MCHC (32.0-36.0) g/dL RDW (12.0-15.0) % Plt Count (130-450) 10^3/uL MPV (7.9-10.8) fL Neut # (Auto) (1.5-6.6) 10^3/uL Lymph # (Auto) (1.5-3.5) 10^3/uL [place] # (Auto) (0.0-1.0) 10^3/uL Eos # (Auto) (0.0-0.7) 10^3/uL Baso # (Auto) (0.0-0.1) 10^3/uL Absolute Nucleated RBC x10^3/uL Nucleated RBC % /100WBC PT (9.9-12.6) secs INR (0.8-1.2) VBG pH 7.409 (7.31-7.41) Ionized Calcium 1.13 L (1.15-1.33) mmol/L Sodium (135-145) mmol/L Potassium (3.5-5.0) mmol/L Chloride (101-111) mmol/L Carbon Dioxide (21-32) mmol/L Anion Gap (6-13) BUN (6-20) mg/dL Creatinine (0.4-1.0) mg/dL Estimated GFR (MDRD) (>89) Glucose (70-100) mg/dL Calcium (8.5-10.3) mg/dL Phosphorus 2.7 (2.5-4.6) mg/dL Magnesium (1.7-2.8) mg/dL Stl C. diff Tox B Gene (NEGATIVE) Last Dose Date 03/22/21 Last Dose Time 0124 Digoxin 0.9 ng/mL 03/23/21 03/23/21 03/22/21 Range/Units 04:56 04:56 20:23 WBC 9.5 (4.8-10.8) x10^3/uL RBC 2.95 L (4.20-5.40) 10^6/uL Hgb 9.1 L (12.0-16.0) g/dL Hct 27.7 L (37.0-47.0) % MCV 93.9 (81.0-99.0) fL MCH 30.8 (27.0-31.0) pg MCHC 32.9 (32.0-36.0) g/dL RDW 17.5 H (12.0-15.0) % Plt Count 339 (130-450) 10^3/uL MPV 8.6 (7.9-10.8) fL Neut # (Auto) 7.2 H (1.5-6.6) 10^3/uL Lymph # (Auto) 1.4 L (1.5-3.5) 10^3/uL [place] # (Auto) 0.7 (0.0-1.0) 10^3/uL Eos # (Auto) 0.0 (0.0-0.7) 10^3/uL Baso # (Auto) 0.0 (0.0-0.1) 10^3/uL Absolute Nucleated RBC 0.00 x10^3/uL Nucleated RBC % 0.0 /100WBC PT (9.9-12.6) secs INR (0.8-1.2) VBG pH (7.31-7.41) Ionized Calcium (1.15-1.33) mmol/L Sodium 131 L (135-145) mmol/L Potassium 3.7 3.9 (3.5-5.0) mmol/L Chloride 104 (101-111) mmol/L Carbon Dioxide 20 L (21-32) mmol/L Anion Gap 7.0 (6-13) BUN 14 (6-20) mg/dL Creatinine 0.9 (0.4-1.0) mg/dL Estimated GFR (MDRD) 61 L (>89) Glucose 142 H (70-100) mg/dL Calcium 7.4 L (8.5-10.3) mg/dL Phosphorus (2.5-4.6) mg/dL Magnesium 2.0 (1.7-2.8) mg/dL Stl C. diff Tox B Gene (NEGATIVE) Last Dose Date Last Dose Time Digoxin ng/mL 03/22/21 03/22/21 03/22/21 Range/Units 20:23 12:32 12:32 WBC (4.8-10.8) x10^3/uL RBC (4.20-5.40) 10^6/uL Hgb (12.0-16.0) g/dL Hct (37.0-47.0) % MCV (81.0-99.0) fL MCH (27.0-31.0) pg MCHC (32.0-36.0) g/dL RDW (12.0-15.0) % Plt Count (130-450) 10^3/uL MPV (7.9-10.8) fL Neut # (Auto) (1.5-6.6) 10^3/uL Lymph # (Auto) (1.5-3.5) 10^3/uL [place] # (Auto) (0.0-1.0) 10^3/uL Eos # (Auto) (0.0-0.7) 10^3/uL Baso # (Auto) (0.0-0.1) 10^3/uL Absolute Nucleated RBC x10^3/uL Nucleated RBC % /100WBC PT (9.9-12.6) secs INR (0.8-1.2) VBG pH 7.407 (7.31-7.41) Ionized Calcium 1.11 L (1.15-1.33) mmol/L Sodium 132 L (135-145) mmol/L Potassium 3.5 (3.5-5.0) mmol/L Chloride 103 (101-111) mmol/L Carbon Dioxide 15 L (21-32) mmol/L Anion Gap 14.0 H (6-13) BUN 17 (6-20) mg/dL Creatinine 1.3 H (0.4-1.0) mg/dL Estimated GFR (MDRD) 40 L (>89) Glucose 149 H (70-100) mg/dL Calcium 7.4 L (8.5-10.3) mg/dL Phosphorus (2.5-4.6) mg/dL Magnesium 2.3 (1.7-2.8) mg/dL Stl C. diff Tox B Gene (NEGATIVE) Last Dose Date Last Dose Time Digoxin ng/mL 03/22/21 03/22/21 03/22/21 Range/Units 08:22 08:22 04:50 WBC (4.8-10.8) x10^3/uL RBC (4.20-5.40) 10^6/uL Hgb (12.0-16.0) g/dL Hct (37.0-47.0) % MCV (81.0-99.0) fL MCH (27.0-31.0) pg MCHC (32.0-36.0) g/dL RDW (12.0-15.0) % Plt Count (130-450) 10^3/uL MPV (7.9-10.8) fL Neut # (Auto) (1.5-6.6) 10^3/uL Lymph # (Auto) (1.5-3.5) 10^3/uL [place] # (Auto) (0.0-1.0) 10^3/uL Eos # (Auto) (0.0-0.7) 10^3/uL Baso # (Auto) (0.0-0.1) 10^3/uL Absolute Nucleated RBC x10^3/uL Nucleated RBC % /100WBC PT 12.4 (9.9-12.6) secs INR 1.1 (0.8-1.2) VBG pH 7.405 (7.31-7.41) Ionized Calcium 1.08 L (1.15-1.33) mmol/L Sodium (135-145) mmol/L Potassium (3.5-5.0) mmol/L Chloride (101-111) mmol/L Carbon Dioxide (21-32) mmol/L Anion Gap (6-13) BUN (6-20) mg/dL Creatinine (0.4-1.0) mg/dL Estimated GFR (MDRD) (>89) Glucose (70-100) mg/dL Calcium (8.5-10.3) mg/dL Phosphorus (2.5-4.6) mg/dL Magnesium (1.7-2.8) mg/dL Stl C. diff Tox B Gene NEGATIVE (NEGATIVE) Last Dose Date Last Dose Time Digoxin ng/mL Sepsis Event Note (H) - Evaluation Current Stage of Sepsis: Septic shock Possible source of Sepsis: positive: Unknown - Sepsis Criteria Sepsis Criteria: Recorded Heart Rate greater than 90 bpm, WBC count greater than 12,000 or less than 4000, MAP less than 65 mmHg, SBP less than 90 mmHg, Renal: urine output less than 0.5ml/kg/hr for 2 hours or creatinine gr, Metabolic: lactate > 2 mmol/L Assessment/Plan - Problem List (1) Septic shock Impression: The concern initially was for septic shock given elevated white count, hypotension, elevated lactic acid. This was felt be secondary to either urinary tract infection or less likely the diverticulitis. Blood cultures have been negative to date. Her white count has now normalized as well as her lactic acid. She still remains hypotensive but her norepinephrine requirements are decreasing. I do wonder if she was just quite hypovolemic on admission given the diarrhea she had been having as her white count, hemoglobin, platelet count have all decreased and that her lactic acid was later to hypoperfusion from the hypotension rather than necessarily sepsis. Nonetheless, we will keep her on cefepime and Flagyl IV given the diverticulitis and concern for cystitis. We will follow up urine cultures. We will look to wean her off the norepinephrine today. Continue with IV hydration. (2) Cystitis Impression: The concern is for cystitis causing the sepsis. Her urinalysis reveals positive nitrites and leukocyte esterase. She do not have significant pyuria but did have bacteriuria. We are awaiting urine culture but fortunately blood cultures have been negative to date and CT did not reveal any evidence of obstruction. She will remain on cefepime IV until we have cultures back. (3) Diverticulitis Impression: CT was concerning for diverticulitis. Clinically she appears improved and is tolerating a diet. I doubt this was the cause of her septic shock. We will keep her on cefepime and Flagyl IV and will transition to oral antibiotics once we have urine cultures back and she is off of the norepinephrine. She will need a colonoscopy in 6 to 8 weeks on outpatient basis. (4) Atrial fibrillation with RVR Impression: She remains in atrial fibrillation with rates in the 110s. We are managing this with digoxin she is hypotensive and we cannot use diltiazem or metoprolol. Her echocardiogram revealed a preserved ejection fraction. Suspect this is driven by her Synthroid dose as her TSH is quite decreased. Once we can wean her off of norepinephrine we will start her on a beta-analia. We will adjust the dose of her home Synthroid as mentioned below. (5) GABRIEL (acute kidney injury) Impression: This is now resolved. Her creatinine is down to 0.9 from 1.3 on admission. This was likely prerenal in injury secondary to diarrhea and possible component of ATN given her hypotension. 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 She is on Synthroid at home and her dose is too much for her. We are holding her home Synthroid for the time being and she will need a reduction of her home Synthroid. This will likely be reduced to 75 mcg daily. She will need a repeat TSH in 6 weeks. (7) Colitis Impression: CT is concerning for thickening of the cecum and proximal ascending colon which could be infectious or inflammatory. Neoplasm cannot be excluded. She ultimately would benefit from a colonoscopy once she is improved from a hemodynamic standpoint. (8) Sacral decubitus ulcer, stage II Impression: This was present on admission. Continue with frequent turns and repositioning.
[2021-03-23] MEDS: SACCHAROMYCES BOULARDII 250 MG CAPSULE PO SCH ×2 (08:36→16:13)
[2021-03-23] MEDS: MULTIVITAMIN TABLET PO SCH (08:36)
[2021-03-23] MEDS: CEFEPIME 2 GM in SODIUM CHLORIDE 0.9% MINIBAG 100 ML IV SCH ×2 (08:36→21:39)
[2021-03-23] MEDS: DIGOXIN 500 MCG/2 ML AMP IVP SCH (08:36)
[2021-03-23] MEDS: ENOXAPARIN 40 MG/0.4 ML SYRINGE SUBQ SCH (08:37)
[2021-03-23] MEDS: PANTOPRAZOLE 40 MG VIAL IVP SCH ×2 (08:37→21:38)
[2021-03-23] MEDS: metroNIDAZOLE 500 MG/100 ML 500 MG/100 ML BAG IV SCH ×3 (08:50→23:28)
[2021-03-23] MEDS: SODIUM CHLORIDE 0.9% 500 ML IV PRN (09:00)
[2021-03-23] MEDS ORDERED: ACETAMINOPHEN 325 MG TABLET PO PRN (23:35)
[2021-03-23] MEDS: ONDANSETRON 4 MG/2 ML VIAL IVP PRN (23:39)
[2021-03-23] MEDS: LOPERAMIDE 2 MG CAPSULE PO PRN (23:39)
[2021-03-24] MEDS ORDERED: SODIUM CHLORIDE 0.9% 500 ML IV ONE ×2 (00:51→02:24)
[2021-03-24] MEDS ORDERED: SODIUM CHLORIDE 0.9% 1,000 ML IV SCH (00:53)
[2021-03-24] MEDS ORDERED: METOPROLOL 5 MG/5 ML VIAL IVP STA (01:08)
[2021-03-24] MEDS: SODIUM CHLORIDE FLUSH 0.9% 10 ML SYRINGE IVP PRN ×3 (01:22→20:01)
[2021-03-24 05:31] LABS: CALCIUM, IONIZED 1.11 mmol/L (1.15-1.33); VBG PH 7.328 (7.31-7.41)
[2021-03-24 05:32] LABS: BASOPHILS # (AUTO) 0.1 10^3/uL (0.0-0.1); BASOPHILS % (AUTO) 0.6 %; EOSINOPHILS # (AUTO) 0.2 10^3/uL (0.0-0.7); EOSINOPHILS % (AUTO) 2.1 %; HCT - HEMATOCRIT 28.3 % (37.0-47.0); HGB - HEMOGLOBIN 8.9 g/dL (12.0-16.0); LYMPHOCYTES # (AUTO) 2.1 10^3/uL (1.5-3.5); LYMPHOCYTES % (AUTO) 23.8 %; MEAN CORPUSCULAR HEMOGLOBIN 29.9 pg (27.0-31.0); MEAN CORPUSCULAR HGB CONC 31.4 g/dL (32.0-36.0); MEAN PLATELET VOLUME 9.5 fL (7.9-10.8); MONOCYTES # (AUTO) 0.5 10^3/uL (0.0-1.0); MONOCYTES % (AUTO) 6.2 %; NEUTROPHILS # (AUTO) 5.9 10^3/uL (1.5-6.6); PLT - PLATELET COUNT 342 10^3/uL (130-450); RED BLOOD COUNT 2.98 10^6/uL (4.20-5.40); RED CELL DISTRIBUTION WIDTH 17.4 % (12.0-15.0); WHITE BLOOD COUNT 8.7 x10^3/uL (4.8-10.8)
[2021-03-24 05:40] LABS: CREATININE 0.6 mg/dL (0.4-1.0); MAGNESIUM 1.6 mg/dL (1.7-2.8); PHOSPHORUS 2.3 mg/dL (2.5-4.6); POTASSIUM 3.5 mmol/L (3.5-5.0)
[2021-03-24] MEDS: DIGOXIN 500 MCG/2 ML AMP IVP SCH (06:02)
[2021-03-24] MEDS ORDERED: MAGNESIUM OXIDE 400 MG TABLET PO ONE (08:00)
[2021-03-24] MEDS ORDERED: LACTATED RINGERS 1,000 ML IV ONE ×2 (08:06→15:30)
[2021-03-24] MEDS: LOPERAMIDE 2 MG CAPSULE PO PRN (08:09)
[2021-03-24] MEDS: ONDANSETRON 4 MG/2 ML VIAL IVP PRN ×3 (08:09→20:01)
[2021-03-24] MEDS: MULTIVITAMIN TABLET PO SCH (08:11)
[2021-03-24] MEDS: metroNIDAZOLE 500 MG/100 ML 500 MG/100 ML BAG IV SCH ×2 (08:11→15:33)
[2021-03-24] MEDS: SACCHAROMYCES BOULARDII 250 MG CAPSULE PO SCH ×2 (08:11→16:54)
[2021-03-24] MEDS: CEFEPIME 2 GM in SODIUM CHLORIDE 0.9% MINIBAG 100 ML IV SCH (08:11)
[2021-03-24] MEDS: PANTOPRAZOLE 40 MG VIAL IVP SCH (08:12)
[2021-03-24] MEDS: ENOXAPARIN 40 MG/0.4 ML SYRINGE SUBQ SCH (08:12)
[2021-03-24] MEDS: SODIUM CHLORIDE FLUSH 0.9% 10 ML SYRINGE IVP SCH ×2 (08:13→16:55)
--- NOTE | 2021-03-24 09:27 | PROVIDER PROGRESS NOTE ---
Subjective - Prog Note Date Prog Note Date: 03/24/21 - Subjective Subjective: She continues have a cough and feels like there is phlegm stuck in her throat. Denies any chest pain. Does not feel dyspneic. Still is a little abdominal pain but diarrhea is resolved. [place] nauseous and had one episode of vomiting this morning. Current Medications - Current Medications Current Medications: Active Medications Acetaminophen (Acetaminophen 325 Mg Tablet) 650 mg PO Q4HR PRN PRN Reason: Pain or Fever > 38C (100.4F) Last Admin: 03/23/21 23:43 Dose: 650 mg Documented by: Digoxin (Digoxin 500 Mcg/2 Ml Amp) 250 mcg IVP 0900 [facility] Last Admin: 03/24/21 06:02 Dose: 250 mcg Documented by: Enoxaparin Sodium (Enoxaparin 40 Mg/0.4 Ml Syringe) 40 mg SUBQ DAILY [facility] Last Admin: 03/24/21 08:12 Dose: 40 mg Documented by: Metronidazole (Flagyl 500 Mg/100 Ml) 500 mg in 100 mls @ 100 mls/hr IV Q8H [facility] Last Infusion: 03/24/21 09:19 Dose: Infused Documented by: Norepinephrine Bitartrate 8 mg (/ Dextrose) 250 mls @ 15 mls/hr IV .[id number] [facility]; Protocol Last Titration: 03/24/21 09:00 Dose: 6 mcg/min, 11.25 mls/hr Documented by: Sodium Chloride (Normal Saline 0.9%) 500 mls @ 20 mls/hr IV Q24H PRN PRN Reason: TKO RATE Last Infusion: 03/24/21 09:00 Dose: 20 mls/hr Documented by: Cefepime HCl 2 gm/ Sodium (Chloride) 100 mls @ 200 mls/hr IV BID [facility] Last Infusion: 03/24/21 08:45 Dose: Infused Documented by: Lactated Ringer's (Lr) 1,000 mls @ 500 mls/hr IV ONCE ONE Stop: 03/24/21 10:05 Last Admin: 03/24/21 08:22 Dose: 500 mls/hr Documented by: Loperamide HCl (Loperamide 2 Mg Capsule) 2 mg PO QID PRN PRN Reason: Diarrhea Last Admin: 03/23/21 23:39 Dose: 2 mg Documented by: Multivitamins (Multivitamin Tablet) 1 tab PO DAILYWM [facility] Last Admin: 03/24/21 08:11 Dose: 1 tab Documented by: Ondansetron HCl (Ondansetron 4 Mg/2 Ml Vial) 4 mg IVP Q6HR PRN PRN Reason: Nausea / Vomiting Last Admin: 03/24/21 08:09 Dose: 4 mg Documented by: Pantoprazole Sodium (Pantoprazole 40 Mg Vial) 40 mg IVP BID [facility] Last Admin: 03/24/21 08:12 Dose: 40 mg Documented by: Prochlorperazine Edisylate (Prochlorperazine 10 Mg/2 Ml Vial) 10 mg IVP Q6HR PRN PRN Reason: Nausea / Vomiting Saccharomyces Boulardii (Saccharomyces Boulardii 250 Mg Capsule) 250 mg PO BIDWM [facility] Last Admin: 03/24/21 08:11 Dose: 250 mg Documented by: Sodium Chloride (Sodium Chloride Flush 0.9% 10 Ml Syringe) 10 ml IVP 0100,0900,1700 [facility] Last Admin: 03/24/21 08:13 Dose: 10 ml Documented by: Sodium Chloride (Sodium Chloride Flush 0.9% 10 Ml Syringe) 10 ml IVP PRN PRN PRN Reason: NEEDED PER PROVIDER ORDERS Last Admin: 03/24/21 06:03 Dose: 10 ml Documented by: Sodium Chloride (Sodium Chloride Flush 0.9% 10 Ml Syringe) 20 ml IVP PRN PRN PRN Reason: After Blood Draw Last Admin: 03/23/21 04:59 Dose: 20 ml Documented by: Sodium Phosphate (Neutra-Phos 250 Mg Tablet) 250 mg PO ONCE ONE Stop: 03/24/21 11:01 Levothyroxine Sodium 137 mcg PO DAILY 03/22/21 Lovastatin 20 mg PO QPM 03/22/21 Metformin HCl [Metformin ER Gastric] 500 mg PO QPM 03/22/21 atenoloL [Tenormin] 50 mg PO QPM 03/22/21 Objective - Vital Signs/Intake & Output Reviewed Vital Signs: Yes Vital Signs: Vital Signs Temp Pulse Pulse Resp BP Pulse Ox 03/24/21 09:00 109 H 20 91/53 L 99 03/24/21 08:15 126 H 19 116/69 97 03/24/21 08:00 37.1 C 112 H 16 93/62 98 03/24/21 07:00 124 H 13 94/59 L 96 03/24/21 06:45 116 H 96/63 03/24/21 06:30 146 H 89/61 L 03/24/21 06:15 142 H 88/67 L 03/24/21 06:02 146 H 03/24/21 05:59 469 H 23 86/64 L 96 Intake & Output: Intake & Output 03/21/21 03/22/21 03/23/21 03/24/21 23:59 23:59 23:59 23:59 Intake Total 5081.54 5531.813 4469.917 3732.438 Output Total 907 3650 905 Balance 5081.54 4624.813 247.625 6139.438 - Objective General Appearance: positive: No acute distress, Alert Eyes Bilateral: positive: Normal inspection, Conjunctivae nml ENT: positive: Pharynx nml. negative: Purulent nasal drainage, Pharyngeal erythema Neck: positive: Nml inspection Respiratory: positive: No respiratory distress. negative: Wheezes, Rales Cardiovascular: positive: No murmur, Irregularly irregular, Tachycardia. negat reji: Systolic murmur Abdomen: positive: Non-tender, No distention. negative: Tenderness Skin: positive: Warm, Dry Extremities: positive: Pedal edema (+1 edema in left lower extremity.) Neurologic/Psychiatric: negative: Disoriented to person, Disoriented to place - Lab Results Fish Bones: 03/24/21 04:15 03/24/21 14:30 Other Labs: Lab Results x24hrs 03/24/21 03/24/21 03/24/21 Range/Units 04:15 04:15 04:15 WBC 8.7 (4.8-10.8) x10^3/uL RBC 2.98 L (4.20-5.40) 10^6/uL Hgb 8.9 L (12.0-16.0) g/dL Hct 28.3 L (37.0-47.0) % MCV 95.0 (81.0-99.0) fL MCH 29.9 (27.0-31.0) pg MCHC 31.4 L (32.0-36.0) g/dL RDW 17.4 H (12.0-15.0) % Plt Count 342 (130-450) 10^3/uL MPV 9.5 (7.9-10.8) fL Neut # (Auto) 5.9 (1.5-6.6) 10^3/uL Lymph # (Auto) 2.1 (1.5-3.5) 10^3/uL [place] # (Auto) 0.5 (0.0-1.0) 10^3/uL Eos # (Auto) 0.2 (0.0-0.7) 10^3/uL Baso # (Auto) 0.1 (0.0-0.1) 10^3/uL Absolute Nucleated RBC 0.00 x10^3/uL Nucleated RBC % 0.0 /100WBC VBG pH 7.328 (7.31-7.41) Ionized Calcium 1.11 L (1.15-1.33) mmol/L Sodium 132 L (135-145) mmol/L Potassium 3.5 (3.5-5.0) mmol/L Chloride 107 (101-111) mmol/L Carbon Dioxide 18 L (21-32) mmol/L Anion Gap 7.0 (6-13) BUN 10 (6-20) mg/dL Creatinine 0.6 (0.4-1.0) mg/dL Estimated GFR (MDRD) 97 (>89) Glucose 115 H (70-100) mg/dL Calcium 7.0 L (8.5-10.3) mg/dL Phosphorus 2.3 L (2.5-4.6) mg/dL Magnesium 1.6 L (1.7-2.8) mg/dL Sepsis Event Note (H) - Evaluation Current Stage of Sepsis: Septic shock Possible source of Sepsis: positive: Unknown - Sepsis Criteria Sepsis Criteria: Recorded Heart Rate greater than 90 bpm, WBC count greater than 12,000 or less than 4000, MAP less than 65 mmHg, SBP less than 90 mmHg, Renal: urine output less than 0.5ml/kg/hr for 2 hours or creatinine gr, Metabolic: lactate > 2 mmol/L Assessment/Plan - Problem List (1) Shock circulatory Impression: She is still hypotensive requiring norepinephrine. Initial concern was for septic shock secondary to UTI but her urine culture had no growth. Her blood cultures have also been negative to date. She does have diverticulitis but this does not appear to be the cause of her shock. I suspect she may have been quite hypovolemic on admission as she had hemoconcentration and an elevated lactic acid responded to IV fluids. Given she still on norepinephrine, we will give another liter of IV fluids. Her troponins were only mildly elevated on admission but we will recheck this to evaluate for potential cardiac etiology. Echocardiogram obtained early on during his admission showed a preserved ejection fraction. If her troponin is significantly elevated we will repeat an echocardiogram to ensure that she is not in cardiogenic shock and may have developed NSTEMI during this hospitalization. We will switch antibiotics to ceftriaxone and Flagyl for diverticulitis but discontinue cefepime. (2) Atrial fibrillation with RVR Impression: Her heart rate has been difficult to control and this is likely exacerbated by the norepinephrine. She has been receiving IV digoxin and received a dose of metoprolol overnight. We will check a troponin to evaluate for potential ischemia and base of this will consider repeating an echocardiogram. We will keep her norepinephrine for the time being but will consider switching her to Chriss-Synephrine. We will keep her on IV digoxin. (3) Diverticulitis Impression: Stable. She has been tolerating a diet except for some nausea this morning. She has no abdominal pain. We will switch antibiotics to ceftriaxone and Flagyl. (4) GABRIEL (acute kidney injury) Impression: This has resolved. This was secondary to hypovolemia and resolved with IV fluids. Continue to monitor her renal function. 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 This was likely contributing to the atrial fibrillation as well. (6) Colitis Impression: CT suggested infection or inflammation of the ascending colon. She will need an outpatient colonoscopy for further evaluation to ensure there is no underlying mass. (7) Sacral decubitus ulcer, stage II Impression: Continue with repositioning and frequent turns.
[2021-03-24] MEDS ORDERED: ASPIRIN CHEW 81 MG TABLET PO STA (10:56)
[2021-03-24] MEDS ORDERED: NEUTRA-PHOS 250 MG TABLET PO ONE (11:00)
[2021-03-24 11:05] LABS: ALBUMIN 1.6 g/dL (3.2-5.5); BILIRUBIN,DIRECT 0.2 mg/dL (0.1-0.5); BILIRUBIN,TOTAL 0.7 mg/dL (0.2-1.0)
[2021-03-24 14:56] LABS: MAGNESIUM 1.6 mg/dL (1.7-2.8); PHOSPHORUS 2.9 mg/dL (2.5-4.6)
[2021-03-24] MEDS ORDERED: MAGNESIUM SULFATE 2 GRAM 2 GM/50 ML BAG IV ONE (15:04)
[2021-03-24] MEDS ORDERED: DIGOXIN 500 MCG/2 ML AMP IVP STA (15:22)
[2021-03-24] MEDS: POTASSIUM CHLOR 20 MEQ/100 ML 20 MEQ/100 ML BAG IV SCH ×2 (15:33→16:46)
[2021-03-24] MEDS: PHENYLEPHRINE 20 MG in SODIUM CHLORIDE 0.9% 248 ML IV SCH (16:44)
--- NOTE | 2021-03-24 16:58 | PROVIDER PROGRESS NOTE ---
Hospitalist Cross-cover Note - Cross-Cover Note Cross-Cover Note: I was asked to evaluate the patient using a bedside Echocardiogram, since she remains hypotensive and today her troponin joselo to 700. Her EKG from today is also suspicious for an acute IN, with new poor R wave progression and new QS waves in V5 and lower voltage. I personally performed a limited bedside Echo (2D only), since I am Board certified in and have completed Fellowship training in Cardiology. The Echocardiogram showed a thinned and akinetic septum, apex and anterior wall, hypokinetic inferior wall, preserved lateral wall function, LVEF estimated at 20 to 25%. There are horizontal shadows at the LV apex which are very suspicious for LV apical clot. Imp: Acute large evelyn-apical IN. Possible LV apical clot. Probable cardiogenic shock. This information was all communicated with Dr. Froylan Cedeno. CRITICAL CARE TIME SPENT: 30 min
[2021-03-24] MEDS: ENOXAPARIN 100 MG/ML SYRINGE SUBQ SCH (17:47)
[2021-03-24] MEDS ORDERED: ENOXAPARIN 100 MG/ML SYRINGE SUBQ SCH (21:00)
[2021-03-25] MEDS: metroNIDAZOLE 500 MG/100 ML 500 MG/100 ML BAG IV SCH ×3 (00:53→16:18)
[2021-03-25] MEDS: ONDANSETRON 4 MG/2 ML VIAL IVP PRN ×3 (04:00→22:40)
[2021-03-25 05:39] LABS: BASOPHILS # (AUTO) 0.1 10^3/uL (0.0-0.1); BASOPHILS % (AUTO) 0.8 %; EOSINOPHILS # (AUTO) 0.2 10^3/uL (0.0-0.7); EOSINOPHILS % (AUTO) 1.9 %; HGB - HEMOGLOBIN 10.2 g/dL (12.0-16.0); LYMPHOCYTES # (AUTO) 2.3 10^3/uL (1.5-3.5); LYMPHOCYTES % (AUTO) 26.5 %; MEAN CORPUSCULAR HEMOGLOBIN 30.6 pg (27.0-31.0); MEAN CORPUSCULAR HGB CONC 31.9 g/dL (32.0-36.0); MEAN CORPUSCULAR VOLUME 96.1 fL (81.0-99.0); MEAN PLATELET VOLUME 9.7 fL (7.9-10.8); MONOCYTES # (AUTO) 0.7 10^3/uL (0.0-1.0); MONOCYTES % (AUTO) 7.5 %; NEUTROPHILS # (AUTO) 5.4 10^3/uL (1.5-6.6); NEUTROPHILS % (AUTO) 62.8 %; PLT - PLATELET COUNT 413 10^3/uL (130-450); RED BLOOD COUNT 3.33 10^6/uL (4.20-5.40); RED CELL DISTRIBUTION WIDTH 17.6 % (12.0-15.0); WHITE BLOOD COUNT 8.6 x10^3/uL (4.8-10.8)
[2021-03-25 05:41] LABS: CALCIUM, IONIZED 1.13 mmol/L (1.15-1.33); VBG PH 7.31 (7.31-7.41)
[2021-03-25 05:52] LABS: CALCIUM 7.5 mg/dL (8.5-10.3); CREATININE 0.6 mg/dL (0.4-1.0); MAGNESIUM 1.8 mg/dL (1.7-2.8); PHOSPHORUS 2.7 mg/dL (2.5-4.6); POTASSIUM 3.8 mmol/L (3.5-5.0)
[2021-03-25] MEDS: SODIUM CHLORIDE FLUSH 0.9% 10 ML SYRINGE IVP SCH ×3 (06:44→17:20)
[2021-03-25] MEDS ORDERED: LEVOTHYROXINE 75 MCG TABLET PO SCH (07:00)
[2021-03-25 07:48] LABS: DIGOXIN 2.2 ng/mL
[2021-03-25] MEDS ORDERED: AMIODARONE 150 MG/100 ML 100 ML IV ONE (08:00)
[2021-03-25] MEDS ORDERED: AMIODARONE 360 MG/200 ML 200 ML IV ONE (08:10)
[2021-03-25] MEDS ORDERED: cefTRIAXone 2 GM in SODIUM CHLORIDE 0.9% MINIBAG 100 ML IV SCH (09:00)
[2021-03-25] MEDS: SODIUM CHLORIDE 0.9% 500 ML IV PRN (09:13)
[2021-03-25] MEDS: PHENYLEPHRINE 20 MG in SODIUM CHLORIDE 0.9% 248 ML IV SCH ×2 (09:23→10:48)
[2021-03-25] MEDS: MULTIVITAMIN TABLET PO SCH (10:53)
[2021-03-25] MEDS: SACCHAROMYCES BOULARDII 250 MG CAPSULE PO SCH ×2 (10:53→17:19)
[2021-03-25] MEDS: ENOXAPARIN 100 MG/ML SYRINGE SUBQ SCH ×2 (10:55→20:50)
[2021-03-25] MEDS ORDERED: ASPIRIN CHEW 81 MG TABLET PO SCH (11:00)
--- NOTE | 2021-03-25 12:10 | XRAY Report ---
PROCEDURE: Chest 1 View X-Ray INDICATIONS: NSTEMI. Hypoxia. COMMENTS: NSTEMI, hypoxia PRIORS: 03/22/21 TECHNIQUE: One view of the chest was acquired. COMPARISON: 03/22/2021 FINDINGS: Surgical changes and devices: Right IJ catheter appears well-positioned. Lungs and pleura: Pulmonary vascular congestion with bilateral perihilar groundglass opacities. No pneumothorax or pleural effusion. Mediastinum: Mediastinal contours appear normal. Heart size is mildly enlarged. Bones and chest wall: No suspicious bony lesions. Overlying soft tissues appear unremarkable. IMPRESSION: Mild cardiomegaly and pulmonary edema consistent with CHF. Reviewed by: Tobin Nguyễn on 03/25/2021 11:09 AM [facility] Approved by: Tobin Nguyễn on 03/25/2021 11:09 AM [facility] Station ID: [id number]
[2021-03-25 13:01] LABS: B. PARAPERTUSSIS- RESP PCR PAN NOT DETECTED; B. PERTUSSIS- RESP PCR PANEL NOT DETECTED; C. PNEUMONIAE- RESP PCR PANEL NOT DETECTED; CORONAVIRUS 229E-RESP PCR NOT DETECTED; CORONAVIRUS HKU1-RESP PCR NOT DETECTED; CORONAVIRUS NL63-RESP PCR NOT DETECTED; CORONAVIRUS OC43-RESP PCR NOT DETECTED; HUMAN METAPNEUMOVIRUS NOT DETECTED; INFLUENZA A- RESP PCR PANEL NOT DETECTED; INFLUENZA B - RESP PCR PANEL NOT DETECTED; M. PNEUMONIAE- RESP PCR PANEL NOT DETECTED; PARAINFLUENZA VIRUS 1 NOT DETECTED; PARAINFLUENZA VIRUS 2 NOT DETECTED; PARAINFLUENZA VIRUS 3 NOT DETECTED; PARAINFLUENZA VIRUS 4 NOT DETECTED; RHINOVIRUS/ENTEROVIRUS NOT DETECTED; RSV- RESP PCR PANEL NOT DETECTED; SARS-CoV-2 -RESP PCR PANEL NOT DETECTED
[2021-03-25] MEDS ORDERED: MAGNESIUM SULFATE 2 GRAM 2 GM/50 ML BAG IV ONE (13:12)
[2021-03-25] MEDS ORDERED: POTASSIUM CHLOR 20 MEQ/100 ML 20 MEQ/100 ML BAG IV ONE (13:12)
--- NOTE | 2021-03-25 13:47 | DISCHARGE SUMMARY ---
"Discharge Summary Admit Date: 03/22/21 Discharge Date: 03/25/21 Discharging Provider: Froylan Mina Primary Care Provider: Erinn Lara Code Status: Do Not Attempt Resuscitation Condition at Discharge: Critical Discharge Disposition: 02 Transfer Acute Care Hosp Discharge Facility Name: [facility] - DIAGNOSES Admission Diagnoses: Septic shock Diverticulitis Enteritis Cystitis A. 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 NSTEMI - ongoing. Atrial fibrillation with rapid ventricular response - ongoing. Acute HFrEF - ongoing. Diverticulitis - improved. Acute kidney injury - resolved. Thyrotoxicosis megestrol excessive thyroid return - improved. Colitis - improved. Sacral decubitus ulcer, stage II - stable. Subacute T12 compression fracture - stable. - HPI History of Present Illness: H&P per Dr. Schneider: This is a 76-year-old white female with a history of A. fib not on anticoagulation, recurrent UTIs, chronic low back pain. She was on Zithromax in [facility]. She has been experiencing some nausea, vomiting but frequent diarrhea for 2 weeks and has had no oral intake for the last 2 days, nor has she been out of bed for about 2 days. Today while trying to walk, she felt weak and slumped to the ground. There was no trauma. She was on the ground approximately 2 hours. EMS was called and she was found to be hypotensive and tachycardic at the scene. In the ER her heart rate was 150 in A. fib and blood pressure normal until she received a Lopressor IV push and then she became hypotensive. She is found to have septic shock with a lactic acid level of 8, GABRIEL with a creatinine of 1.3, dehydration, Mcneal has been inserted and there has been no urine output. She has received over 3L of crystalloid fluids. Imaging of the abdomen showed diverticulitis. She has received doses of vancomycin, cefepime and Flagyl. A right IJ was inserted by the ED provider, she has been started on a Levophed drip and her BP improved to 115/50 and she is being admitted to the ICU. We discussed her code wishes and she wishes to be a Full Code. - CONSULTS | PROCEDURES Procedures: Echocardiogram March 22 showed a normal LV size and function with an EF of 60%. Left atrium is mildly dilated. Moderate pulmonary pretension, PASP 54 mmHg. Mildly dilated right ventricle with normal function. Mild mitral regurgitation. No evidence of LV thrombus. Limited echocardiogram on March 24 showed a thinned and akinetic septum, apex and anterior wall, hypokinetic inferior wall, preserved lateral wall function, LVEF estimated at 20 to 25%. There are horizontal shadows at the LV apex which are very suspicious for LV apical clot. - HOSPITAL COURSE Hospital Course: She was admitted to intensive care unit for what was initially presumed to be septic shock secondary to a urinary tract infection. CT also showed evidence of diverticulitis as well as inflammation of the ascending colon and underlying mass or infection cannot be ruled out. She was treated empirically with vancomycin, cefepime, Flagyl IV. Her lactic acid went from 8 down to less than 2 after initial IV fluid resuscitation. She had acute kidney injury on admission with a creatinine of 1.3 and this also resolved with IV fluids. She was started on norepinephrine as she remained hypotensive. Urine cultures and blood cultures came back with no growth and it was felt less likely at this point in time that she had septic shock and she was likely just quite hypovolemic. We did obtain echocardiogram on admission which showed a preserved ejection fraction with no wall motion abnormalities. Her initial troponins were flat in the 20s which was felt to be demand ischemia. Her antibiotics were deescalated to ceftriaxone and Flagyl alone given the diverticulitis. Despite improvement in her labs, she remained hypotensive requiring norepinephrine. She was given another 2 L of IV fluids without improvement blood pressure. On the morning of the , the patient complained of nausea and had an increase in her norepinephrine requirements. We checked a troponin and it was now elevated at 700. A repeat EKG was obtained which did show new Q waves in V4 and V5. Unfortunately, we did not have echocardiogram available that day and will not for the next week but fortunately, one of my colleagues has a fellowship in cardiology and was able to perform a limited bedside echo. This revealed an ejection fraction of approximately 20 to 25% and there was now an akinetic septum, apex and anterior wall. The inferior wall was also hypokinetic. There was also concern for a left ventricle apical clot although this was not present on the prior echocardiogram. The concern was for an NSTEMI given the elevated troponin and the new echocardiogram findings. The patient was given aspirin, Lipitor and started on Lovenox. She is not given a beta-analia due to the hypotension. I did attempt to transfer her to [place] or [facility] that evening but unfortunately there were no beds available at [place] and [facility] did not call me back. The following morning I spoke with [facility] as they were not available the prior evening and they were able to find a bed for the patient at [facility] in [place]. I spoke with Dr. Ferrer who graciously accepted the patient in transfer. On the day of transfer, she remains on norepinephrine 8 mcg a minute. She was started on amiodarone given her a tribulation has been difficult to control with heart rates in the 140s to 150s. She was given a 150 mg bolus and started on infusion at 1 mg an hour. She was previously receiving IV digoxin without improvement in her heart rate. Her renal function has remained within normal limits and her most recent lactic and LFTs are within normal limits as well. She is on room air but chest x-ray does reveal pulmonary vascular congestion and her BNP is now greater than 1800 when it was initially in the 400s. She was not given IV Lasix due to the hypotension and the fact she was on room air but we have held off on further IV fluids.She remains on IV ceftriaxone and Flagyl with today being day 4 of antibiotics. It was also noted on admission that her TSH was less than 0.08. Her Synthroid was held for 3 days and resumed today at a lower dose of 75 mcg. The patient is transferred to [facility] via ALS in stable condition. I did attempt to call her son to update him on the plan to transfer but there was no answer. The patient is a DNR but is agreeable to any int ervention and this was discussed with the school psychologist at [facility]. - ALLERGIES Allergies/Adverse Reactions: Allergies Allergy/AdvReac Type Severity Reaction Status Date / Time ampicillin Allergy Rash Verified 03/21/21 19:38 cephalexin Allergy Rash Verified 03/21/21 19:38 clindamycin Allergy Rash Verified 03/21/21 19:38 iodine Allergy Rash Verified 03/21/21 19:38 Penicillins Allergy Rash Verified 03/21/21 19:38 - MEDICATIONS Home Medications: Ambulatory Orders Medication Instructions Recorded Confirmed Levothyroxine Sodium 137 mcg PO DAILY 03/22/21 03/22/21 Lovastatin 20 mg PO QPM 03/22/21 03/22/21 Metformin HCl [Metformin ER 500 mg PO QPM 03/22/21 03/22/21 Gastric] atenoloL [Tenormin] 50 mg PO QPM 03/22/21 03/22/21 - PHYSICAL EXAM AT DISCHARGE General Appearance: positive: No acute distress, Alert Eyes Bilateral: positive: Normal inspection, Conjunctivae nml ENT: positive: ENT inspection nml Neck: positive: Nml inspection Respiratory: positive: No respiratory distress, Other (Faint crackles bilaterally.). negative: Wheezes, Rhonchi Cardiovascular: positive: No murmur, Irregularly irregular, Tachycardia. negative: Systolic murmur Abdomen: positive: Non-tender, Nml bowel sounds, No distention. negative: Tenderness Skin: positive: Warm, Dry Extremities: positive: Pedal edema (Trace to +1 edema in lower extremities.) Neurologic/Psychiatric: positive: Other (No focal deficits.). negative: Disoriented to person, Disoriented to place - LABS Result Diagrams: 03/25/21 04:11 03/25/21 16:25 Other Lab Results: Laboratory Tests 03/21/21 03/21/21 03/21/21 00:50 00:50 19:31 WBC 22.2 H RBC 4.16 L Hgb 12.6 Hct 39.8 MCV 95.7 MCH 30.3 MCHC 31.7 L RDW 17.3 H Plt Count 569 H MPV 9.0 Neut # (Auto) Not Reportable Lymph # (Auto) Not Reportable [place] # (Auto) Not Reportable Eos # (Auto) Not Reportable Baso # (Auto) Not Reportable Absolute Nucleated RBC Not Reportable Total Counted 100 Band Neuts % (Manual) 3 Abnorm Lymph % (Manual) 0 Nucleated RBC % Not Reportable Neutrophils # (Manual) 20.9 H Lymphocytes # (Manual) 0.7 L Monocytes # (Manual) 0.7 Eosinophils # (Manual) 0.0 Basophils # (Manual) 0.0 Differential Comment MANUAL DIFFERENTIAL WBC Morphology NORMAL APPEARANCE Platelet Estimate INCREASED (>450,000) Platelet Morphology NORMAL APPEARANCE RBC Morph Micro Appear NORMAL APPEARANCE PT INR VBG pH VBG pCO2 VBG pO2 VBG HCO3 VBG Total CO2 VBG O2 Saturation VBG Base Excess Ionized Calcium Sodium Potassium Chloride Carbon Dioxide Anion Gap BUN Creatinine Estimated GFR (MDRD) Glucose POC Whole Bld Glucose Lactic Acid Cancelled Calcium Phosphorus Magnesium Total Bilirubin Direct Bilirubin AST ALT Alkaline Phosphatase Total Creatine Kinase Troponin I High Sens Cancelled B-Natriuretic Peptide Total Protein Albumin Globulin Albumin/Globulin Ratio TSH Free T4 Urine Color Urine Clarity Urine pH Ur Specific [place] Urine Protein Urine Glucose (UA) Urine Ketones Urine Occult Blood Urine Nitrite Urine Bilirubin Urine Urobilinogen Ur Leukocyte Esterase Urine RBC Urine WBC Ur Squamous Epith Cells Urine Bacteria Urine Mucus Urine Culture Comments Nasal Adenovirus (PCR) Nasal B. parapertussis DNA (PCR) Nasal Coronavir 229E PCR Nasal Coronavir HKU1 PCR Nasal Coronavir NL63 PCR Nasal Coronavir OC43 PCR Nasal Enterovir/Rhinovir PCR Nasal Influenza B PCR Nasal Influenza A PCR Nasal Parainfluen 1 PCR Nasal Parainfluen 2 PCR Nasal Parainfluen 3 PCR Nasal Parainfluen 4 PCR Nasal RSV (PCR) Nasal Screen MRSA (PCR) Nasal B.pertussis DNA PCR Nasal C.pneumoniae (PCR) Devyn Human Metapneumo PCR Nasal M.pneumoniae (PCR) Nasal SARS-CoV-2 (PCR) Stl C. diff Tox B Gene Last Dose Date Last Dose Time Digoxin 03/21/21 03/21/21 03/21/21 19:31 19:31 19:31 WBC RBC Hgb Hct MCV MCH MCHC RDW Plt Count MPV Neut # (Auto) Lymph # (Auto) [place] # (Auto) Eos # (Auto) Baso # (Auto) Absolute Nucleated RBC Total Counted Band Neuts % (Manual) Abnorm Lymph % (Manual) Nucleated RBC % Neutrophils # (Manual) Lymphocytes # (Manual) Monocytes # (Manual) Eosinophils # (Manual) Basophils # (Manual) Differential Comment WBC Morphology Platelet Estimate Platelet Morphology RBC Morph Micro Appear PT INR VBG pH VBG pCO2 VBG pO2 VBG HCO3 VBG Total CO2 VBG O2 Saturation VBG Base Excess Ionized Calcium Sodium 134 L Potassium 4.3 Chloride 94 L Carbon Dioxide 16 L Anion Gap 24.0 H BUN 18 Creatinine 1.3 H Estimated GFR (MDRD) 40 L Glucose 166 H POC Whole Bld Glucose Lactic Acid 8.1 H* Calcium 8.9 Phosphorus Magnesium Total Bilirubin 1.6 H Direct Bilirubin AST 44 H ALT 16 Alkaline Phosphatase 107 Total Creatine Kinase 68 Troponin I High Sens 14.9 H* B-Natriuretic Peptide Total Protein 5.2 L Albumin 2.1 L Globulin 3.1 Albumin/Globulin Ratio 0.7 L TSH Free T4 Urine Color Urine Clarity Urine pH Ur Specific [place] Urine Protein Urine Glucose (UA) Urine Ketones Urine Occult Blood Urine Nitrite Urine Bilirubin Urine Urobilinogen Ur Leukocyte Esterase Urine RBC Urine WBC Ur Squamous Epith Cells Urine Bacteria Urine Mucus Urine Culture Comments Nasal Adenovirus (PCR) Nasal B. parapertussis DNA (PCR) Nasal Coronavir 229E PCR Nasal Coronavir HKU1 PCR Nasal Coronavir NL63 PCR Nasal Coronavir OC43 PCR Nasal Enterovir/Rhinovir PCR Nasal Influenza B PCR Nasal Influenza A PCR Nasal Parainfluen 1 PCR Nasal Parainfluen 2 PCR Nasal Parainfluen 3 PCR Nasal Parainfluen 4 PCR Nasal RSV (PCR) Nasal Screen MRSA (PCR) Nasal B.pertussis DNA PCR Nasal C.pneumoniae (PCR) Devyn Human Metapneumo PCR Nasal M.pneumoniae (PCR) Nasal SARS-CoV-2 (PCR) Stl C. diff Tox B Gene Last Dose Date Last Dose Time Digoxin 03/21/21 03/21/21 03/21/21 19:31 19:31 19:31 WBC RBC Hgb Hct MCV MCH MCHC RDW Plt Count MPV Neut # (Auto) Lymph # (Auto) [place] # (Auto) Eos # (Auto) Baso # (Auto) Absolute Nucleated RBC Total Counted Band Neuts % (Manual) Abnorm Lymph % (Manual) Nucleated RBC % Neutrophils # (Manual) Lymphocytes # (Manual) Monocytes # (Manual) Eosinophils # (Manual) Basophils # (Manual) Differential Comment WBC Morphology Platelet Estimate Platelet Morphology RBC Morph Micro Appear PT INR VBG pH 7.384 VBG pCO2 24.7 L VBG pO2 23.9 L VBG HCO3 14.4 L VBG Total CO2 15.2 L VBG O2 Saturation 37.1 L VBG Base Excess -8.8 L Ionized Calcium Sodium Potassium Chloride Carbon Dioxide Anion Gap BUN Creatinine Estimated GFR (MDRD) Glucose POC Whole Bld Glucose Lactic Acid Calcium Phosphorus Magnesium Total Bilirubin Direct Bilirubin AST ALT Alkaline Phosphatase Total Creatine Kinase Troponin I High Sens B-Natriuretic Peptide 422 H Total Protein Albumin Globulin Albumin/Globulin Ratio TSH < 0.08 L Free T4 Urine Color Urine Clarity Urine pH Ur Specific [place] Urine Protein Urine Glucose (UA) Urine Ketones Urine Occult Blood Urine Nitrite Urine Bilirubin Urine Urobilinogen Ur Leukocyte Esterase Urine RBC Urine WBC Ur Squamous Epith Cells Urine Bacteria Urine Mucus Urine Culture Comments Nasal Adenovirus (PCR) Nasal B. parapertussis DNA (PCR) Nasal Coronavir 229E PCR Nasal Coronavir HKU1 PCR Nasal Coronavir NL63 PCR Nasal Coronavir OC43 PCR Nasal Enterovir/Rhinovir PCR Nasal Influenza B PCR Nasal Influenza A PCR Nasal Parainfluen 1 PCR Nasal Parainfluen 2 PCR Nasal Parainfluen 3 PCR Nasal Parainfluen 4 PCR Nasal RSV (PCR) Nasal Screen MRSA (PCR) Nasal B.pertussis DNA PCR Nasal C.pneumoniae (PCR) Dveyn Human Metapneumo PCR Nasal M.pneumoniae (PCR) Nasal SARS-CoV-2 (PCR) Stl C. diff Tox B Gene Last Dose Date Last Dose Time Digoxin 03/21/21 03/21/21 03/21/21 19:31 19:33 19:38 WBC RBC Hgb Hct MCV MCH MCHC RDW Plt Count MPV Neut # (Auto) Lymph # (Auto) [place] # (Auto) Eos # (Auto) Baso # (Auto) Absolute Nucleated RBC Total Counted Band Neuts % (Manual) Abnorm Lymph % (Manual) Nucleated RBC % Neutrophils # (Manual) Lymphocytes # (Manual) Monocytes # (Manual) Eosinophils # (Manual) Basophils # (Manual) Differential Comment WBC Morphology Platelet Estimate Platelet Morphology RBC Morph Micro Appear PT INR VBG pH VBG pCO2 VBG pO2 VBG HCO3 VBG Total CO2 VBG O2 Saturation VBG Base Excess Ionized Calcium Sodium Potassium Chloride Carbon Dioxide Anion Gap BUN Creatinine Estimated GFR (MDRD) Glucose POC Whole Bld Glucose 165 H Lactic Acid Calcium Phosphorus Magnesium Total Bilirubin Direct Bilirubin AST ALT Alkaline Phosphatase Total Creatine Kinase Troponin I High Sens B-Natriuretic Peptide Total Protein Albumin Globulin Albumin/Globulin Ratio TSH Free T4 3.36 H Urine Color Urine Clarity Urine pH Ur Specific [place]pine Urine Protein Urine Glucose (UA) Urine Ketones Urine Occult Blood Urine Nitrite Urine Bilirubin Urine Urobilinogen Ur Leukocyte Esterase Urine RBC Urine WBC Ur Squamous Epith Cells Urine Bacteria Urine Mucus Urine Culture Comments Nasal Adenovirus (PCR) NOT DETECTED Nasal B. parapertussis DNA (PCR) NOT DETECTED Nasal Coronavir 229E PCR NOT DETECTED Nasal Coronavir HKU1 PCR NOT DETECTED Nasal Coronavir NL63 PCR NOT DETECTED Nasal Coronavir OC43 PCR NOT DETECTED Nasal Enterovir/Rhinovir PCR NOT DETECTED Nasal Influenza B PCR NOT DETECTED Nasal Influenza A PCR NOT DETECTED Nasal Parainfluen 1 PCR NOT DETECTED Nasal Parainfluen 2 PCR NOT DETECTED Nasal Parainfluen 3 PCR NOT DETECTED Nasal Parainfluen 4 PCR NOT DETECTED Nasal RSV (PCR) NOT DETECTED Nasal Screen MRSA (PCR) Nasal B.pertussis DNA PCR NOT DETECTED Nasal C.pneumoniae (PCR) NOT DETECTED Devyn Human Metapneumo PCR NOT DETECTED Nasal M.pneumoniae (PCR) NOT DETECTED Nasal SARS-CoV-2 (PCR) NOT DETECTED Stl C. diff Tox B Gene Last Dose Date Last Dose Time Digoxin 03/21/21 03/22/21 03/22/21 19:55 00:50 00:50 WBC RBC Hgb Hct MCV MCH MCHC RDW Plt Count MPV Neut # (Auto) Lymph # (Auto) [place] # (Auto) Eos # (Auto) Baso # (Auto) Absolute Nucleated RBC Total Counted Band Neuts % (Manual) Abnorm Lymph % (Manual) Nucleated RBC % Neutrophils # (Manual) Lymphocytes # (Manual) Monocytes # (Manual) Eosinophils # (Manual) Basophils # (Manual) Differential Comment WBC Morphology Platelet Estimate Platelet Morphology RBC Morph Micro Appear PT INR VBG pH VBG pCO2 VBG pO2 VBG HCO3 VBG Total CO2 VBG O2 Saturation VBG Base Excess Ionized Calcium Sodium Potassium Chloride Carbon Dioxide Anion Gap BUN Creatinine Estimated GFR (MDRD) Glucose POC Whole Bld Glucose Lactic Acid 1.4 Calcium Phosphorus Magnesium Total Bilirubin Direct Bilirubin AST ALT Alkaline Phosphatase Total Creatine Kinase Troponin I High Sens 19.6 H* B-Natriuretic Peptide Total Protein Albumin Globulin Albumin/Globulin Ratio TSH Free T4 Urine Color DARK YELLOW Urine Clarity HAZY Urine pH 5.5 Ur Specific Alpine 1.020 Urine Protein 30 H Urine Glucose (UA) 100 H Urine Ketones TRACE Urine Occult Blood NEGATIVE Urine Nitrite POSITIVE H Urine Bilirubin NEGATIVE Urine Urobilinogen 4 H Ur Leukocyte Esterase TRACE H Urine RBC 0-5 Urine WBC 4-5 Ur Squamous Epith Cells RARE Squamous Urine Bacteria Few Urine Mucus Marked Strands Urine Culture Comments INDICATED Nasal Adenovirus (PCR) Nasal B. parapertussis DNA (PCR) Nasal Coronavir 229E PCR Nasal Coronavir HKU1 PCR Nasal Coronavir NL63 PCR Nasal Coronavir OC43 PCR Nasal Enterovir/Rhinovir PCR Nasal Influenza B PCR Nasal Influenza A PCR Nasal Parainfluen 1 PCR Nasal Parainfluen 2 PCR Nasal Parainfluen 3 PCR Nasal Parainfluen 4 PCR Nasal RSV (PCR) Nasal Screen MRSA (PCR) Nasal B.pertussis DNA PCR Nasal C.pneumoniae (PCR) Devyn Human Metapneumo PCR Nasal M.pneumoniae (PCR) Nasal SARS-CoV-2 (PCR) Stl C. diff Tox B Gene Last Dose Date Last Dose Time Digoxin 03/22/21 03/22/21 03/22/21 00:50 02:45 04:50 WBC RBC Hgb Hct MCV MCH MCHC RDW Plt Count MPV Neut # (Auto) Lymph # (Auto) [place] # (Auto) Eos # (Auto) Baso # (Auto) Absolute Nucleated RBC Total Counted Band Neuts % (Manual) Abnorm Lymph % (Manual) Nucleated RBC % Neutrophils # (Manual) Lymphocytes # (Manual) Monocytes # (Manual) Eosinophils # (Manual) Basophils # (Manual) Differential Comment WBC Morphology Platelet Estimate Platelet Morphology RBC Morph Micro Appear PT INR VBG pH VBG pCO2 VBG pO2 VBG HCO3 VBG Total CO2 VBG O2 Saturation VBG Base Excess Ionized Calcium Sodium Potassium Chloride Carbon Dioxide Anion Gap BUN Creatinine Estimated GFR (MDRD) Glucose POC Whole Bld Glucose Lactic Acid Calcium Phosphorus Magnesium 1.3 L Total Bilirubin Direct Bilirubin AST ALT Alkaline Phosphatase Total Creatine Kinase Troponin I High Sens B-Natriuretic Peptide Total Protein Albumin Globulin Albumin/Globulin Ratio TSH Free T4 Urine Color Urine Clarity Urine pH Ur Specific [place] Urine Protein Urine Glucose (UA) Urine Ketones Urine Occult Blood Urine Nitrite Urine Bilirubin Urine Urobilinogen Ur Leukocyte Esterase Urine RBC Urine WBC Ur Squamous Epith Cells Urine Bacteria Urine Mucus Urine Culture Comments Nasal Adenovirus (PCR) Nasal B. parapertussis DNA (PCR) Nasal Coronavir 229E PCR Nasal Coronavir HKU1 PCR Nasal Coronavir NL63 PCR Nasal Coronavir OC43 PCR Nasal Enterovir/Rhinovir PCR Nasal Influenza B PCR Nasal Influenza A PCR Nasal Parainfluen 1 PCR Nasal Parainfluen 2 PCR Nasal Parainfluen 3 PCR Nasal Parainfluen 4 PCR Nasal RSV (PCR) Nasal Screen MRSA (PCR) NEGATIVE Nasal B.pertussis DNA PCR Nasal C.pneumoniae (PCR) Devyn Human Metapneumo PCR Nasal M.pneumoniae (PCR) Nasal SARS-CoV-2 (PCR) Stl C. diff Tox B Gene NEGATIVE Last Dose Date Last Dose Time Digoxin 03/22/21 03/22/21 03/22/21 04:55 04:55 04:55 WBC 16.8 H RBC 3.33 L Hgb 10.1 L Hct 31.2 L MCV 93.7 MCH 30.3 MCHC 32.4 RDW 17.5 H Plt Count 470 H MPV 9.2 Neut # (Auto) 13.6 H Lymph # (Auto) 1.7 [place] # (Auto) 1.4 H Eos # (Auto) 0.0 Baso # (Auto) 0.0 Absolute Nucleated RBC 0.00 Total Counted Band Neuts % (Manual) Abnorm Lymph % (Manual) Nucleated RBC % 0.0 Neutrophils # (Manual) Lymphocytes # (Manual) Monocytes # (Manual) Eosinophils # (Manual) Basophils # (Manual) Differential Comment WBC Morphology Platelet Estimate Platelet Morphology RBC Morph Micro Appear PT INR VBG pH VBG pCO2 VBG pO2 VBG HCO3 VBG Total CO2 VBG O2 Saturation VBG Base Excess Ionized Calcium Sodium 135 Potassium 3.4 L Chloride 104 Carbon Dioxide 15 L Anion Gap 16.0 H BUN 18 Creatinine 1.2 H Estimated GFR (MDRD) 44 L Glucose 124 H POC Whole Bld Glucose Lactic Acid Calcium 7.5 L Phosphorus 3.1 Magnesium 1.3 L Total Bilirubin Direct Bilirubin AST ALT Alkaline Phosphatase Total Creatine Kinase Troponin I High Sens 23.1 H* B-Natriuretic Peptide Total Protein Albumin Globulin Albumin/Globulin Ratio TSH Free T4 Urine Color Urine Clarity Urine pH Ur Specific [place] Urine Protein Urine Glucose (UA) Urine Ketones Urine Occult Blood Urine Nitrite Urine Bilirubin Urine Urobilinogen Ur Leukocyte Esterase Urine RBC Urine WBC Ur Squamous Epith Cells Urine Bacteria Urine Mucus Urine Culture Comments Nasal Adenovirus (PCR) Nasal B. parapertussis DNA (PCR) Nasal Coronavir 229E PCR Nasal Coronavir HKU1 PCR Nasal Coronavir NL63 PCR Nasal Coronavir OC43 PCR Nasal Enterovir/Rhinovir PCR Nasal Influenza B PCR Nasal Influenza A PCR Nasal Parainfluen 1 PCR Nasal Parainfluen 2 PCR Nasal Parainfluen 3 PCR Nasal Parainfluen 4 PCR Nasal RSV (PCR) Nasal Screen MRSA (PCR) Nasal B.pertussis DNA PCR Nasal C.pneumoniae (PCR) Devyn Human Metapneumo PCR Nasal M.pneumoniae (PCR) Nasal SARS-CoV-2 (PCR) Stl C. diff Tox B Gene Last Dose Date Last Dose Time Digoxin 03/22/21 03/22/21 03/22/21 04:55 08:22 08:22 WBC RBC Hgb Hct MCV MCH MCHC RDW Plt Count MPV Neut # (Auto) Lymph # (Auto) [place] # (Auto) Eos # (Auto) Baso # (Auto) Absolute Nucleated RBC Total Counted Band Neuts % (Manual) Abnorm Lymph % (Manual) Nucleated RBC % Neutrophils # (Manual) Lymphocytes # (Manual) Monocytes # (Manual) Eosinophils # (Manual) Basophils # (Manual) Differential Comment WBC Morphology Platelet Estimate Platelet Morphology RBC Morph Micro Appear PT 12.4 INR 1.1 VBG pH 7.405 VBG pCO2 VBG pO2 VBG HCO3 VBG Total CO2 VBG O2 Saturation VBG Base Excess Ionized Calcium 1.08 L Sodium Potassium Chloride Carbon Dioxide Anion Gap BUN Creatinine Estimated GFR (MDRD) Glucose POC Whole Bld Glucose Lactic Acid Calcium Phosphorus Magnesium Total Bilirubin Direct Bilirubin AST ALT Alkaline Phosphatase Total Creatine Kinase Troponin I High Sens B-Natriuretic Peptide Total Protein Albumin Globulin Albumin/Globulin Ratio TSH Free T4 Urine Color Urine Clarity Urine pH Ur Specific [place] Urine Protein Urine Glucose (UA) Urine Ketones Urine Occult Blood Urine Nitrite Urine Bilirubin Urine Urobilinogen Ur Leukocyte Esterase Urine RBC Urine WBC Ur Squamous Epith Cells Urine Bacteria Urine Mucus Urine Culture Comments Nasal Adenovirus (PCR) Nasal B. parapertussis DNA (PCR) Nasal Coronavir 229E PCR Nasal Coronavir HKU1 PCR Nasal Coronavir NL63 PCR Nasal Coronavir OC43 PCR Nasal Enterovir/Rhinovir PCR Nasal Influenza B PCR Nasal Influenza A PCR Nasal Parainfluen 1 PCR Nasal Parainfluen 2 PCR Nasal Parainfluen 3 PCR Nasal Parainfluen 4 PCR Nasal RSV (PCR) Nasal Screen MRSA (PCR) Nasal B.pertussis DNA PCR Nasal C.pneumoniae (PCR) Devyn Human Metapneumo PCR Nasal M.pneumoniae (PCR) Nasal SARS-CoV-2 (PCR) Stl C. diff Tox B Gene Last Dose Date UNKNOWN Last Dose Time UNKNOWN Digoxin 1.8 03/22/21 03/22/21 03/22/21 12:32 12:32 20:23 WBC RBC Hgb Hct MCV MCH MCHC RDW Plt Count MPV Neut # (Auto) Lymph # (Auto) [place] # (Auto) Eos # (Auto) Baso # (Auto) Absolute Nucleated RBC Total Counted Band Neuts % (Manual) Abnorm Lymph % (Manual) Nucleated RBC % Neutrophils # (Manual) Lymphocytes # (Manual) Monocytes # (Manual) Eosinophils # (Manual) Basophils # (Manual) Differential Comment WBC Morphology Platelet Estimate Platelet Morphology RBC Morph Micro Appear PT INR VBG pH 7.407 VBG pCO2 VBG pO2 VBG HCO3 VBG Total CO2 VBG O2 Saturation VBG Base Excess Ionized Calcium 1.11 L Sodium 132 L Potassium 3.5 Chloride 103 Carbon Dioxide 15 L Anion Gap 14.0 H BUN 17 Creatinine 1.3 H Estimated GFR (MDRD) 40 L Glucose 149 H POC Whole Bld Glucose Lactic Acid Calcium 7.4 L Phosphorus Magnesium 2.3 Total Bilirubin Direct Bilirubin AST ALT Alkaline Phosphatase Total Creatine Kinase Troponin I High Sens B-Natriuretic Peptide Total Protein Albumin Globulin Albumin/Globulin Ratio TSH Free T4 Urine Color Urine Clarity Urine pH Ur Specific [place] Urine Protein Urine Glucose (UA) Urine Ketones Urine Occult Blood Urine Nitrite Urine Bilirubin Urine Urobilinogen Ur Leukocyte Esterase Urine RBC Urine WBC Ur Squamous Epith Cells Urine Bacteria Urine Mucus Urine Culture Comments Nasal Adenovirus (PCR) Nasal B. parapertussis DNA (PCR) Nasal Coronavir 229E PCR Nasal Coronavir HKU1 PCR Nasal Coronavir NL63 PCR Nasal Coronavir OC43 PCR Nasal Enterovir/Rhinovir PCR Nasal Influenza B PCR Nasal Influenza A PCR Nasal Parainfluen 1 PCR Nasal Parainfluen 2 PCR Nasal Parainfluen 3 PCR Nasal Parainfluen 4 PCR Nasal RSV (PCR) Nasal Screen MRSA (PCR) Nasal B.pertussis DNA PCR Nasal C.pneumoniae (PCR) Devyn Human Metapneumo PCR Nasal M.pneumoniae (PCR) Nasal SARS-CoV-2 (PCR) Stl C. diff Tox B Gene Last Dose Date Last Dose Time Digoxin 03/22/21 03/23/21 03/23/21 20:23 04:56 04:56 WBC 9.5 RBC 2.95 L Hgb 9.1 L Hct 27.7 L MCV 93.9 MCH 30.8 MCHC 32.9 RDW 17.5 H Plt Count 339 MPV 8.6 Neut # (Auto) 7.2 H Lymph # (Auto) 1.4 L [place] # (Auto) 0.7 Eos # (Auto) 0.0 Baso # (Auto) 0.0 Absolute Nucleated RBC 0.00 Total Counted Band Neuts % (Manual) Abnorm Lymph % (Manual) Nucleated RBC % 0.0 Neutrophils # (Manual) Lymphocytes # (Manual) Monocytes # (Manual) Eosinophils # (Manual) Basophils # (Manual) Differential Comment WBC Morphology Platelet Estimate Platelet Morphology RBC Morph Micro Appear PT INR VBG pH VBG pCO2 VBG pO2 VBG HCO3 VBG Total CO2 VBG O2 Saturation VBG Base Excess Ionized Calcium Sodium 131 L Potassium 3.9 3.7 Chloride 104 Carbon Dioxide 20 L Anion Gap 7.0 BUN 14 Creatinine 0.9 Estimated GFR (MDRD) 61 L Glucose 142 H POC Whole Bld Glucose Lactic Acid Calcium 7.4 L Phosphorus Magnesium 2.0 Total Bilirubin Direct Bilirubin AST ALT Alkaline Phosphatase Total Creatine Kinase Troponin I High Sens B-Natriuretic Peptide Total Protein Albumin Globulin Albumin/Globulin Ratio TSH Free T4 Urine Color Urine Clarity Urine pH Ur Specific [place] Urine Protein Urine Glucose (UA) Urine Ketones Urine Occult Blood Urine Nitrite Urine Bilirubin Urine Urobilinogen Ur Leukocyte Esterase Urine RBC Urine WBC Ur Squamous Epith Cells Urine Bacteria Urine Mucus Urine Culture Comments Nasal Adenovirus (PCR) Nasal B. parapertussis DNA (PCR) Nasal Coronavir 229E PCR Nasal Coronavir HKU1 PCR Nasal Coronavir NL63 PCR Nasal Coronavir OC43 PCR Nasal Enterovir/Rhinovir PCR Nasal Influenza B PCR Nasal Influenza A PCR Nasal Parainfluen 1 PCR Nasal Parainfluen 2 PCR Nasal Parainfluen 3 PCR Nasal Parainfluen 4 PCR Nasal RSV (PCR) Nasal Screen MRSA (PCR) Nasal B.pertussis DNA PCR Nasal C.pneumoniae (PCR) Devyn Human Metapneumo PCR Nasal M.pneumoniae (PCR) Nasal SARS-CoV-2 (PCR) Stl C. diff Tox B Gene Last Dose Date Last Dose Time Digoxin 03/23/21 03/23/21 03/23/21 04:56 04:56 04:56 WBC RBC Hgb Hct MCV MCH MCHC RDW Plt Count MPV Neut # (Auto) Lymph # (Auto) [place] # (Auto) Eos # (Auto) Baso # (Auto) Absolute Nucleated RBC Total Counted Band Neuts % (Manual) Abnorm Lymph % (Manual) Nucleated RBC % Neutrophils # (Manual) Lymphocytes # (Manual) Monocytes # (Manual) Eosinophils # (Manual) Basophils # (Manual) Differential Comment WBC Morphology Platelet Estimate Platelet Morphology RBC Morph Micro Appear PT INR VBG pH 7.409 VBG pCO2 VBG pO2 VBG HCO3 VBG Total CO2 VBG O2 Saturation VBG Base Excess Ionized Calcium 1.13 L Sodium Potassium Chloride Carbon Dioxide Anion Gap BUN Creatinine Estimated GFR (MDRD) Glucose POC Whole Bld Glucose Lactic Acid Calcium Phosphorus 2.7 Magnesium Total Bilirubin Direct Bilirubin AST ALT Alkaline Phosphatase Total Creatine Kinase Troponin I High Sens B-Natriuretic Peptide Total Protein Albumin Globulin Albumin/Globulin Ratio TSH Free T4 Urine Color Urine Clarity Urine pH Ur Specific [place] Urine Protein Urine Glucose (UA) Urine Ketones Urine Occult Blood Urine Nitrite Urine Bilirubin Urine Urobilinogen Ur Leukocyte Esterase Urine RBC Urine WBC Ur Squamous Epith Cells Urine Bacteria Urine Mucus Urine Culture Comments Nasal Adenovirus (PCR) Nasal B. parapertussis DNA (PCR) Nasal Coronavir 229E PCR Nasal Coronavir HKU1 PCR Nasal Coronavir NL63 PCR Nasal Coronavir OC43 PCR Nasal Enterovir/Rhinovir PCR Nasal Influenza B PCR Nasal Influenza A PCR Nasal Parainfluen 1 PCR Nasal Parainfluen 2 PCR Nasal Parainfluen 3 PCR Nasal Parainfluen 4 PCR Nasal RSV (PCR) Nasal Screen MRSA (PCR) Nasal B.pertussis DNA PCR Nasal C.pneumoniae (PCR) Devyn Human Metapneumo PCR Nasal M.pneumoniae (PCR) Nasal SARS-CoV-2 (PCR) Stl C. diff Tox B Gene Last Dose Date 03/22/21 Last Dose Time 0124 Digoxin 0.9 03/24/21 03/24/21 03/24/21 04:15 04:15 04:15 WBC 8.7 RBC 2.98 L Hgb 8.9 L Hct 28.3 L MCV 95.0 MCH 29.9 MCHC 31.4 L RDW 17.4 H Plt Count 342 MPV 9.5 Neut # (Auto) 5.9 Lymph # (Auto) 2.1 [place] # (Auto) 0.5 Eos # (Auto) 0.2 Baso # (Auto) 0.1 Absolute Nucleated RBC 0.00 Total Counted Band Neuts % (Manual) Abnorm Lymph % (Manual) Nucleated RBC % 0.0 Neutrophils # (Manual) Lymphocytes # (Manual) Monocytes # (Manual) Eosinophils # (Manual) Basophils # (Manual) Differential Comment WBC Morphology Platelet Estimate Platelet Morphology RBC Morph Micro Appear PT INR VBG pH 7.328 VBG pCO2 VBG pO2 VBG HCO3 VBG Total CO2 VBG O2 Saturation VBG Base Excess Ionized Calcium 1.11 L Sodium 132 L Potassium 3.5 Chloride 107 Carbon Dioxide 18 L Anion Gap 7.0 BUN 10 Creatinine 0.6 Estimated GFR (MDRD) 97 Glucose 115 H POC Whole Bld Glucose Lactic Acid Calcium 7.0 L Phosphorus 2.3 L Magnesium 1.6 L Total Bilirubin Direct Bilirubin AST ALT Alkaline Phosphatase Total Creatine Kinase Troponin I High Sens B-Natriuretic Peptide Total Protein Albumin Globulin Albumin/Globulin Ratio TSH Free T4 Urine Color Urine Clarity Urine pH Ur Specific [place] Urine Protein Urine Glucose (UA) Urine Ketones Urine Occult Blood Urine Nitrite Urine Bilirubin Urine Urobilinogen Ur Leukocyte Esterase Urine RBC Urine WBC Ur Squamous Epith Cells Urine Bacteria Urine Mucus Urine Culture Comments Nasal Adenovirus (PCR) Nasal B. parapertussis DNA (PCR) Nasal Coronavir 229E PCR Nasal Coronavir HKU1 PCR Nasal Coronavir NL63 PCR Nasal Coronavir OC43 PCR Nasal Enterovir/Rhinovir PCR Nasal Influenza B PCR Nasal Influenza A PCR Nasal Parainfluen 1 PCR Nasal Parainfluen 2 PCR Nasal Parainfluen 3 PCR Nasal Parainfluen 4 PCR Nasal RSV (PCR) Nasal Screen MRSA (PCR) Nasal B.pertussis DNA PCR Nasal C.pneumoniae (PCR) Devyn Human Metapneumo PCR Nasal M.pneumoniae (PCR) Nasal SARS-CoV-2 (PCR) Stl C. diff Tox B Gene Last Dose Date Last Dose Time Digoxin 03/24/21 03/24/21 03/24/21 04:15 10:39 10:39 WBC RBC Hgb Hct MCV MCH MCHC RDW Plt Count MPV Neut # (Auto) Lymph # (Auto) [place] # (Auto) Eos # (Auto) Baso # (Auto) Absolute Nucleated RBC Total Counted Band Neuts % (Manual) Abnorm Lymph % (Manual) Nucleated RBC % Neutrophils # (Manual) Lymphocytes # (Manual) Monocytes # (Manual) Eosinophils # (Manual) Basophils # (Manual) Differential Comment WBC Morphology Platelet Estimate Platelet Morphology RBC Morph Micro Appear PT INR VBG pH VBG pCO2 VBG pO2 VBG HCO3 VBG Total CO2 VBG O2 Saturation VBG Base Excess Ionized Calcium Sodium Potassium Chloride Carbon Dioxide Anion Gap BUN Creatinine Estimated GFR (MDRD) Glucose POC Whole Bld Glucose Lactic Acid 1.5 Calcium Phosphorus Magnesium Total Bilirubin Direct Bilirubin AST ALT Alkaline Phosphatase Total Creatine Kinase Troponin I High Sens 686.1 H* 706.9 H* B-Natriuretic Peptide Total Protein Albumin Globulin Albumin/Globulin Ratio TSH Free T4 Urine Color Urine Clarity Urine pH Ur Specific [place] Urine Protein Urine Glucose (UA) Urine Ketones Urine Occult Blood Urine Nitrite Urine Bilirubin Urine Urobilinogen Ur Leukocyte Esterase Urine RBC Urine WBC Ur Squamous Epith Cells Urine Bacteria Urine Mucus Urine Culture Comments Nasal Adenovirus (PCR) Nasal B. parapertussis DNA (PCR) Nasal Coronavir 229E PCR Nasal Coronavir HKU1 PCR Nasal Coronavir NL63 PCR Nasal Coronavir OC43 PCR Nasal Enterovir/Rhinovir PCR Nasal Influenza B PCR Nasal Influenza A PCR Nasal Parainfluen 1 PCR Nasal Parainfluen 2 PCR Nasal Parainfluen 3 PCR Nasal Parainfluen 4 PCR Nasal RSV (PCR) Nasal Screen MRSA (PCR) Nasal B.pertussis DNA PCR Nasal C.pneumoniae (PCR) Devyn Human Metapneumo PCR Nasal M.pneumoniae (PCR) Nasal SARS-CoV-2 (PCR) Stl C. diff Tox B Gene Last Dose Date Last Dose Time Digoxin 03/24/21 03/24/21 03/24/21 10:39 14:30 14:30 WBC RBC Hgb Hct MCV MCH MCHC RDW Plt Count MPV Neut # (Auto) Lymph # (Auto) [place] # (Auto) Eos # (Auto) Baso # (Auto) Absolute Nucleated RBC Total Counted Band Neuts % (Manual) Abnorm Lymph % (Manual) Nucleated RBC % Neutrophils # (Manual) Lymphocytes # (Manual) Monocytes # (Manual) Eosinophils # (Manual) Basophils # (Manual) Differential Comment WBC Morphology Platelet Estimate Platelet Morphology RBC Morph Micro Appear PT INR VBG pH VBG pCO2 VBG pO2 VBG HCO3 VBG Total CO2 VBG O2 Saturation VBG Base Excess Ionized Calcium Sodium Potassium 3.5 Chloride Carbon Dioxide Anion Gap BUN Creatinine Estimated GFR (MDRD) Glucose POC Whole Bld Glucose Lactic Acid Calcium Phosphorus 2.9 Magnesium 1.6 L Total Bilirubin 0.7 Direct Bilirubin 0.2 AST 17 ALT 15 Alkaline Phosphatase 64 Total Creatine Kinase Troponin I High Sens B-Natriuretic Peptide Total Protein 4.0 L Albumin 1.6 L Globulin 2.4 Albumin/Globulin Ratio TSH Free T4 Urine Color Urine Clarity Urine pH Ur Specific [place] Urine Protein Urine Glucose (UA) Urine Ketones Urine Occult Blood Urine Nitrite Urine Bilirubin Urine Urobilinogen Ur Leukocyte Esterase Urine RBC Urine WBC Ur Squamous Epith Cells Urine Bacteria Urine Mucus Urine Culture Comments Nasal Adenovirus (PCR) Nasal B. parapertussis DNA (PCR) Nasal Coronavir 229E PCR Nasal Coronavir HKU1 PCR Nasal Coronavir NL63 PCR Nasal Coronavir OC43 PCR Nasal Enterovir/Rhinovir PCR Nasal Influenza B PCR Nasal Influenza A PCR Nasal Parainfluen 1 PCR Nasal Parainfluen 2 PCR Nasal Parainfluen 3 PCR Nasal Parainfluen 4 PCR Nasal RSV (PCR) Nasal Screen MRSA (PCR) Nasal B.pertussis DNA PCR Nasal C.pneumoniae (PCR) Devyn Human Metapneumo PCR Nasal M.pneumoniae (PCR) Nasal SARS-CoV-2 (PCR) Stl C. diff Tox B Gene Last Dose Date Last Dose Time Digoxin 03/24/21 03/24/21 03/24/21 14:30 20:54 20:54 WBC RBC Hgb Hct MCV MCH MCHC RDW Plt Count MPV Neut # (Auto) Lymph # (Auto) [place] # (Auto) Eos # (Auto) Baso # (Auto) Absolute Nucleated RBC Total Counted Band Neuts % (Manual) Abnorm Lymph % (Manual) Nucleated RBC % Neutrophils # (Manual) Lymphocytes # (Manual) Monocytes # (Manual) Eosinophils # (Manual) Basophils # (Manual) Differential Comment WBC Morphology Platelet Estimate Platelet Morphology RBC Morph Micro Appear PT INR VBG pH VBG pCO2 VBG pO2 VBG HCO3 VBG Total CO2 VBG O2 Saturation VBG Base Excess Ionized Calcium Sodium Potassium 4.1 Chloride Carbon Dioxide Anion Gap BUN Creatinine Estimated GFR (MDRD) Glucose POC Whole Bld Glucose Lactic Acid Calcium Phosphorus Magnesium 1.9 Total Bilirubin Direct Bilirubin AST ALT Alkaline Phosphatase Total Creatine Kinase Troponin I High Sens 681.4 H* B-Natriuretic Peptide Total Protein Albumin Globulin Albumin/Globulin Ratio TSH Free T4 Urine Color Urine Clarity Urine pH Ur Specific [place] Urine Protein Urine Glucose (UA) Urine Ketones Urine Occult Blood Urine Nitrite Urine Bilirubin Urine Urobilinogen Ur Leukocyte Esterase Urine RBC Urine WBC Ur Squamous Epith Cells Urine Bacteria Urine Mucus Urine Culture Comments Nasal Adenovirus (PCR) Nasal B. parapertussis DNA (PCR) Nasal Coronavir 229E PCR Nasal Coronavir HKU1 PCR Nasal Coronavir NL63 PCR Nasal Coronavir OC43 PCR Nasal Enterovir/Rhinovir PCR Nasal Influenza B PCR Nasal Influenza A PCR Nasal Parainfluen 1 PCR Nasal Parainfluen 2 PCR Nasal Parainfluen 3 PCR Nasal Parainfluen 4 PCR Nasal RSV (PCR) Nasal Screen MRSA (PCR) Nasal B.pertussis DNA PCR Nasal C.pneumoniae (PCR) Devyn Human Metapneumo PCR Nasal M.pneumoniae (PCR) Nasal SARS-CoV-2 (PCR) Stl C. diff Tox B Gene Last Dose Date Last Dose Time Digoxin 03/25/21 03/25/21 03/25/21 04:11 04:11 04:11 WBC 8.6 RBC 3.33 L Hgb 10.2 L Hct 32.0 L MCV 96.1 MCH 30.6 MCHC 31.9 L RDW 17.6 H Plt Count 413 MPV 9.7 Neut # (Auto) 5.4 Lymph # (Auto) 2.3 [place] # (Auto) 0.7 Eos # (Auto) 0.2 Baso # (Auto) 0.1 Absolute Nucleated RBC 0.00 Total Counted Band Neuts % (Manual) Abnorm Lymph % (Manual) Nucleated RBC % 0.0 Neutrophils # (Manual) Lymphocytes # (Manual) Monocytes # (Manual) Eosinophils # (Manual) Basophils # (Manual) Differential Comment WBC Morphology Platelet Estimate Platelet Morphology RBC Morph Micro Appear PT INR VBG pH 7.310 VBG pCO2 VBG pO2 VBG HCO3 VBG Total CO2 VBG O2 Saturation VBG Base Excess Ionized Calcium 1.13 L Sodium 132 L Potassium 3.8 Chloride 106 Carbon Dioxide 17 L Anion Gap 9.0 BUN 9 Creatinine 0.6 Estimated GFR (MDRD) 97 Glucose 103 H POC Whole Bld Glucose Lactic Acid Calcium 7.5 L Phosphorus 2.7 Magnesium 1.8 Total Bilirubin Direct Bilirubin AST ALT Alkaline Phosphatase Total Creatine Kinase Troponin I High Sens B-Natriuretic Peptide Total Protein Albumin Globulin Albumin/Globulin Ratio TSH Free T4 Urine Color Urine Clarity Urine pH Ur Specific [place] Urine Protein Urine Glucose (UA) Urine Ketones Urine Occult Blood Urine Nitrite Urine Bilirubin Urine Urobilinogen Ur Leukocyte Esterase Urine RBC Urine WBC Ur Squamous Epith Cells Urine Bacteria Urine Mucus Urine Culture Comments Nasal Adenovirus (PCR) Nasal B. parapertussis DNA (PCR) Nasal Coronavir 229E PCR Nasal Coronavir HKU1 PCR Nasal Coronavir NL63 PCR Nasal Coronavir OC43 PCR Nasal Enterovir/Rhinovir PCR Nasal Influenza B PCR Nasal Influenza A PCR Nasal Parainfluen 1 PCR Nasal Parainfluen 2 PCR Nasal Parainfluen 3 PCR Nasal Parainfluen 4 PCR Nasal RSV (PCR) Nasal Screen MRSA (PCR) Nasal B.pertussis DNA PCR Nasal C.pneumoniae (PCR) Devyn Human Metapneumo PCR Nasal M.pneumoniae (PCR) Nasal SARS-CoV-2 (PCR) Stl C. diff Tox B Gene Last Dose Date Last Dose Time Digoxin 03/25/21 03/25/21 03/25/21 04:11 11:30 12:08 WBC RBC Hgb Hct MCV MCH MCHC RDW Plt Count MPV Neut # (Auto) Lymph # (Auto) [place] # (Auto) Eos # (Auto) Baso # (Auto) Absolute Nucleated RBC Total Counted Band Neuts % (Manual) Abnorm Lymph % (Manual) Nucleated RBC % Neutrophils # (Manual) Lymphocytes # (Manual) Monocytes # (Manual) Eosinophils # (Manual) Basophils # (Manual) Differential Comment WBC Morphology Platelet Estimate Platelet Morphology RBC Morph Micro Appear PT INR VBG pH VBG pCO2 VBG pO2 VBG HCO3 VBG Total CO2 VBG O2 Saturation VBG Base Excess Ionized Calcium Sodium Potassium Chloride Carbon Dioxide Anion Gap BUN Creatinine Estimated GFR (MDRD) Glucose POC Whole Bld Glucose Lactic Acid Calcium Phosphorus Magnesium Total Bilirubin Direct Bilirubin AST ALT Alkaline Phosphatase Total Creatine Kinase Troponin I High Sens B-Natriuretic Peptide 1846 H Total Protein Albumin Globulin Albumin/Globulin Ratio TSH Free T4 Urine Color Urine Clarity Urine pH Ur Specific [place] Urine Protein Urine Glucose (UA) Urine Ketones Urine Occult Blood Urine Nitrite Urine Bilirubin Urine Urobilinogen Ur Leukocyte Esterase Urine RBC Urine WBC Ur Squamous Epith Cells Urine Bacteria Urine Mucus Urine Culture Comments Nasal Adenovirus (PCR) NOT DETECTED Nasal B. parapertussis DNA (PCR) NOT DETECTED Nasal Coronavir 229E PCR NOT DETECTED Nasal Coronavir HKU1 PCR NOT DETECTED Nasal Coronavir NL63 PCR NOT DETECTED Nasal Coronavir OC43 PCR NOT DETECTED Nasal Enterovir/Rhinovir PCR NOT DETECTED Nasal Influenza B PCR NOT DETECTED Nasal Influenza A PCR NOT DETECTED Nasal Parainfluen 1 PCR NOT DETECTED Nasal Parainfluen 2 PCR NOT DETECTED Nasal Parainfluen 3 PCR NOT DETECTED Nasal Parainfluen 4 PCR NOT DETECTED Nasal RSV (PCR) NOT DETECTED Nasal Screen MRSA (PCR) Nasal B.pertussis DNA PCR NOT DETECTED Nasal C.pneumoniae (PCR) NOT DETECTED Dev[place] Human Metapneumo PCR NOT DETECTED Nasal M.pneumoniae (PCR) NOT DETECTED Nasal SARS-CoV-2 (PCR) NOT DETECTED Stl C. diff Tox B Gene Last Dose Date 03/24/21 Last Dose Time 1523 Digoxin 2.2 - DIAGNOSTIC IMAGING Diagnostic Imaging Results: Final report reviewed - TIME SPENT Time Spent in Discharge (Minutes): 52"
[2021-03-25] MEDS: PROCHLORPERAZINE 10 MG/2 ML VIAL IVP PRN ×2 (13:56→20:58)
[2021-03-25] MEDS ORDERED: AMIODARONE 360 MG/200 ML 200 ML IV SCH (14:00)
[2021-03-25 16:51] LABS: MAGNESIUM 2.3 mg/dL (1.7-2.8); POTASSIUM 4.1 mmol/L (3.5-5.0)
--- NOTE | 2021-03-25 18:28 | PROVIDER PROGRESS NOTE ---
Subjective - Prog Note Date Prog Note Date: 03/25/21 - Subjective Subjective: She continues to feel nauseous but denies chest pain or dyspnea. Has some mild abdominal discomfort. Current Medications - Current Medications Current Medications: Active Medications Acetaminophen (Acetaminophen 325 Mg Tablet) 650 mg PO Q4HR PRN PRN Reason: Pain or Fever > 38C (100.4F) Last Admin: 03/23/21 23:43 Dose: 650 mg Documented by: Aspirin (Aspirin Chew 81 Mg Tablet) 81 mg PO DAILY BARBRA Last Admin: 03/25/21 11:51 Dose: 81 mg Documented by: Atorvastatin Calcium (Atorvastatin 40 Mg Tablet) 40 mg PO QPM BARBRA Enoxaparin Sodium (Enoxaparin 100 Mg/Ml Syringe) 95 mg SUBQ BID BARBRA Last Admin: 03/25/21 10:55 Dose: 95 mg Documented by: Sodium Chloride (Normal Saline 0.9%) 500 mls @ 20 mls/hr IV Q24H PRN PRN Reason: TKO RATE Last Infusion: 03/25/21 16:18 Dose: 0 mls/hr Documented by: Metronidazole (Flagyl 500 Mg/100 Ml) 500 mg in 100 mls @ 100 mls/hr IV Q8H BARBRA Last Infusion: 03/25/21 17:20 Dose: Infused Documented by: Ceftriaxone Sodium 2 gm/ (Sodium Chloride) 100 mls @ 200 mls/hr IV DAILY BARBRA Last Infusion: 03/25/21 11:10 Dose: Infused Documented by: Norepinephrine Bitartrate 8 mg (/ Dextrose) 250 mls @ 15 mls/hr IV .[id number] BARBRA; Protocol Last Titration: 03/25/21 16:18 Dose: 8 mcg/min, 15 mls/hr Documented by: Amiodarone HCl/Dextrose (Nexterone 360 Mg/200 Ml) 200 mls @ 16.667 mls/hr IV .Q12H BARBRA; Protocol Last Infusion: 03/25/21 16:18 Dose: 0.5 mg/min, 16.667 mls/hr Documented by: Levothyroxine Sodium (Levothyroxine 75 Mcg Tablet) 75 mcg PO QDAC BARBRA Last Admin: 03/25/21 06:44 Dose: 75 mcg Documented by: Multivitamins (Multivitamin Tablet) 1 tab PO DAILYWM BARBRA Last Admin: 03/25/21 10:53 Dose: Not Given Documented by: Ondansetron HCl (Ondansetron 4 Mg/2 Ml Vial) 4 mg IVP Q6HR PRN PRN Reason: Nausea / Vomiting Last Admin: 03/25/21 10:52 Dose: 4 mg Documented by: Prochlorperazine Edisylate (Prochlorperazine 10 Mg/2 Ml Vial) 10 mg IVP Q6HR PRN PRN Reason: Nausea / Vomiting Last Admin: 03/25/21 13:56 Dose: 10 mg Documented by: Saccharomyces Boulardii (Saccharomyces Boulardii 250 Mg Capsule) 250 mg PO BIDWM [facility] Last Admin: 03/25/21 17:19 Dose: Not Given Documented by: Sodium Chloride (Sodium Chloride Flush 0.9% 10 Ml Syringe) 10 ml IVP 0100,0900,1700 [facility] Last Admin: 03/25/21 17:20 Dose: Not Given Documented by: Sodium Chloride (Sodium Chloride Flush 0.9% 10 Ml Syringe) 10 ml IVP PRN PRN PRN Reason: NEEDED PER PROVIDER ORDERS Last Admin: 03/24/21 20:01 Dose: 10 ml Documented by: Sodium Chloride (Sodium Chloride Flush 0.9% 10 Ml Syringe) 20 ml IVP PRN PRN PRN Reason: After Blood Draw Last Admin: 03/23/21 04:59 Dose: 20 ml Documented by: Levothyroxine Sodium 137 mcg PO DAILY 03/22/21 Lovastatin 20 mg PO QPM 03/22/21 Metformin HCl [Metformin ER Gastric] 500 mg PO QPM 03/22/21 atenoloL [Tenormin] 50 mg PO QPM 03/22/21 Objective - Vital Signs/Intake & Output Reviewed Vital Signs: Yes Vital Signs: Vital Signs Temp Pulse Resp BP Pulse Ox 03/25/21 17:00 127 H 16 106/76 98 03/25/21 16:00 36.8 C 138 H 23 88/61 L 96 03/25/21 15:00 121 H 20 90/76 Intake & Output: Intake & Output 03/22/21 03/23/21 03/24/21 03/25/21 23:59 23:59 23:59 23:59 Intake Total 5531.813 4469.917 6539.750 1240.978 Output Total 459 4690 1415 572 Balance 4624.813 375.778 0598.750 668.978 - Objective General Appearance: positive: No acute distress, Alert Eyes Bilateral: positive: Normal inspection, Conjunctivae nml ENT: positive: ENT inspection nml Neck: positive: Nml inspection Respiratory: positive: No respiratory distress, Rales. negative: Wheezes Cardiovascular: positive: No murmur, Irregularly irregular, Tachycardia. negative: Systolic murmur Abdomen: positive: Non-tender, No distention. negative: Tenderness Skin: positive: Warm, Dry Extremities: positive: Pedal edema (Trace to +1 pitting edema in bilateral lower extremities.) Neurologic/Psychiatric: negative: Disoriented to person, Disoriented to place - Lab Results Fish Bones: 03/25/21 04:11 03/25/21 16:25 Other Labs: Lab Results x24hrs 03/25/21 03/25/21 03/25/21 Range/Units 16:25 12:08 11:30 WBC (4.8-10.8) x10^3/uL RBC (4.20-5.40) 10^6/uL Hgb (12.0-16.0) g/dL Hct (37.0-47.0) % MCV (81.0-99.0) fL MCH (27.0-31.0) pg MCHC (32.0-36.0) g/dL RDW (12.0-15.0) % Plt Count (130-450) 10^3/uL MPV (7.9-10.8) fL Neut # (Auto) (1.5-6.6) 10^3/uL Lymph # (Auto) (1.5-3.5) 10^3/uL [place] # (Auto) (0.0-1.0) 10^3/uL Eos # (Auto) (0.0-0.7) 10^3/uL Baso # (Auto) (0.0-0.1) 10^3/uL Absolute Nucleated RBC x10^3/uL Nucleated RBC % /100WBC VBG pH (7.31-7.41) Ionized Calcium (1.15-1.33) mmol/L Sodium (135-145) mmol/L Potassium 4.1 (3.5-5.0) mmol/L Chloride (101-111) mmol/L Carbon Dioxide (21-32) mmol/L Anion Gap (6-13) BUN (6-20) mg/dL Creatinine (0.4-1.0) mg/dL Estimated GFR (MDRD) (>89) Glucose (70-100) mg/dL Calcium (8.5-10.3) mg/dL Phosphorus (2.5-4.6) mg/dL Magnesium 2.3 (1.7-2.8) mg/dL B-Natriuretic Peptide 1846 H (5-100) pg/mL Nasal Adenovirus (PCR) NOT DETECTED Nasal B. parapertussis DNA (PCR) NOT DETECTED Nasal Coronavir 229E PCR NOT DETECTED Nasal Coronavir HKU1 PCR NOT DETECTED Nasal Coronavir NL63 PCR NOT DETECTED Nasal Coronavir OC43 PCR NOT DETECTED Nasal Enterovir/Rhinovir PCR NOT DETECTED Nasal Influenza B PCR NOT DETECTED Nasal Influenza A PCR NOT DETECTED Nasal Parainfluen 1 PCR NOT DETECTED Nasal Parainfluen 2 PCR NOT DETECTED Nasal Parainfluen 3 PCR NOT DETECTED Nasal Parainfluen 4 PCR NOT DETECTED Nasal RSV (PCR) NOT DETECTED Nasal B.pertussis DNA PCR NOT DETECTED Nasal C.pneumoniae (PCR) NOT DETECTED Devyn Human Metapneumo PCR NOT DETECTED Nasal M.pneumoniae (PCR) NOT DETECTED Nasal SARS-CoV-2 (PCR) NOT DETECTED Last Dose Date Last Dose Time Digoxin ng/mL 03/25/21 03/25/21 03/25/21 Range/Units 04:11 04:11 04:11 WBC (4.8-10.8) x10^3/uL RBC (4.20-5.40) 10^6/uL Hgb (12.0-16.0) g/dL Hct (37.0-47.0) % MCV (81.0-99.0) fL MCH (27.0-31.0) pg MCHC (32.0-36.0) g/dL RDW (12.0-15.0) % Plt Count (130-450) 10^3/uL MPV (7.9-10.8) fL Neut # (Auto) (1.5-6.6) 10^3/uL Lymph # (Auto) (1.5-3.5) 10^3/uL [place] # (Auto) (0.0-1.0) 10^3/uL Eos # (Auto) (0.0-0.7) 10^3/uL Baso # (Auto) (0.0-0.1) 10^3/uL Absolute Nucleated RBC x10^3/uL Nucleated RBC % /100WBC VBG pH 7.310 (7.31-7.41) Ionized Calcium 1.13 L (1.15-1.33) mmol/L Sodium 132 L (135-145) mmol/L Potassium 3.8 (3.5-5.0) mmol/L Chloride 106 (101-111) mmol/L Carbon Dioxide 17 L (21-32) mmol/L Anion Gap 9.0 (6-13) BUN 9 (6-20) mg/dL Creatinine 0.6 (0.4-1.0) mg/dL Estimated GFR (MDRD) 97 (>89) Glucose 103 H (70-100) mg/dL Calcium 7.5 L (8.5-10.3) mg/dL Phosphorus 2.7 (2.5-4.6) mg/dL Magnesium 1.8 (1.7-2.8) mg/dL B-Natriuretic Peptide (5-100) pg/mL Nasal Adenovirus (PCR) Nasal B. parapertussis DNA (PCR) Nasal Coronavir 229E PCR Nasal Coronavir HKU1 PCR Nasal Coronavir NL63 PCR Nasal Coronavir OC43 PCR Nasal Enterovir/Rhinovir PCR Nasal Influenza B PCR Nasal Influenza A PCR Nasal Parainfluen 1 PCR Nasal Parainfluen 2 PCR Nasal Parainfluen 3 PCR Nasal Parainfluen 4 PCR Nasal RSV (PCR) Nasal B.pertussis DNA PCR Nasal C.pneumoniae (PCR) Devyn Human Metapneumo PCR Nasal M.pneumoniae (PCR) Nasal SARS-CoV-2 (PCR) Last Dose Date 03/24/21 Last Dose Time 1523 Digoxin 2.2 ng/mL 03/25/21 03/24/21 03/24/21 Range/Units 04:11 20:54 20:54 WBC 8.6 (4.8-10.8) x10^3/uL RBC 3.33 L (4.20-5.40) 10^6/uL Hgb 10.2 L (12.0-16.0) g/dL Hct 32.0 L (37.0-47.0) % MCV 96.1 (81.0-99.0) fL MCH 30.6 (27.0-31.0) pg MCHC 31.9 L (32.0-36.0) g/dL RDW 17.6 H (12.0-15.0) % Plt Count 413 (130-450) 10^3/uL MPV 9.7 (7.9-10.8) fL Neut # (Auto) 5.4 (1.5-6.6) 10^3/uL Lymph # (Auto) 2.3 (1.5-3.5) 10^3/uL [place] # (Auto) 0.7 (0.0-1.0) 10^3/uL Eos # (Auto) 0.2 (0.0-0.7) 10^3/uL Baso # (Auto) 0.1 (0.0-0.1) 10^3/uL Absolute Nucleated RBC 0.00 x10^3/uL Nucleated RBC % 0.0 /100WBC VBG pH (7.31-7.41) Ionized Calcium (1.15-1.33) mmol/L Sodium (135-145) mmol/L Potassium 4.1 (3.5-5.0) mmol/L Chloride (101-111) mmol/L Carbon Dioxide (21-32) mmol/L Anion Gap (6-13) BUN (6-20) mg/dL Creatinine (0.4-1.0) mg/dL Estimated GFR (MDRD) (>89) Glucose (70-100) mg/dL Calcium (8.5-10.3) mg/dL Phosphorus (2.5-4.6) mg/dL Magnesium 1.9 (1.7-2.8) mg/dL B-Natriuretic Peptide (5-100) pg/mL Nasal Adenovirus (PCR) Nasal B. parapertussis DNA (PCR) Nasal Coronavir 229E PCR Nasal Coronavir HKU1 PCR Nasal Coronavir NL63 PCR Nasal Coronavir OC43 PCR Nasal Enterovir/Rhinovir PCR Nasal Influenza B PCR Nasal Influenza A PCR Nasal Parainfluen 1 PCR Nasal Parainfluen 2 PCR Nasal Parainfluen 3 PCR Nasal Parainfluen 4 PCR Nasal RSV (PCR) Nasal B.pertussis DNA PCR Nasal C.pneumoniae (PCR) Devyn Human Metapneumo PCR Nasal M.pneumoniae (PCR) Nasal SARS-CoV-2 (PCR) Last Dose Date Last Dose Time Digoxin ng/mL Sepsis Event Note (H) - Evaluation Current Stage of Sepsis: Septic shock Possible source of Sepsis: positive: Unknown - Sepsis Criteria Sepsis Criteria: Recorded Heart Rate greater than 90 bpm, WBC count greater than 12,000 or less than 4000, MAP less than 65 mmHg, SBP less than 90 mmHg, Renal: urine output less than 0.5ml/kg/hr for 2 hours or creatinine gr, Metabolic: lactate > 2 mmol/L Assessment/Plan - Problem List (1) Shock circulatory Impression: She remains hypotensive requiring norepinephrine. Given the reduced EF and NSTEMI, the concern is for cardiogenic shock and she remains on norepinephrine. Her vasopressor requirements are stable and her renal function is at baseline. Her lactic acid LFTs are also within normal limits. We are looking to transfer to high-level care for cardiology evaluation. We will continue norepinephrine with a goal mean arterial pressure greater than 65 mmHg. (2) NSTEMI (non-ST elevated myocardial infarction) Impression: The concerns for NSTEMI given the elevated troponin of 700 and wall motion normalities on the new echocardiogram with an ejection fraction of 25%. She is now on enoxaparin, aspirin and Lipitor. No beta-analia due to the hypotension and concern for shock. The patient was accepted in transfer today to [facility] in [place] but unfortunate appears there was miscommunication and a bed is not available at this time. I spoke with [facility] again this evening and they are working on finding a bed for the patient. In the meantime we will continue medical management and hope that we can transfer to higher level of care as soon as possible. (3) Atrial fibrillation with RVR Impression: Heart rate has been difficult to control. We are now going to place her on amiodarone IV after a bolus. She is on Lovenox as well for anticoagulation. Limited echo yesterday was concerning for potential thrombus in the LV but the initial echocardiogram did not suggest any evidence of thrombus. (4) Acute HFrEF (heart failure with reduced ejection fraction) Impression: Limited echocardiogram obtained yesterday revealed an ejection fraction of 20- 25% with wall motion abnormalities. This is changed compared to the echocardiogram from admission. Although she is not hypoxic, the x-ray today does reveal pulmonary vascular congestion and her BNP is greater than 1800. This is likely secondary to the NSTEMI and we are looking to transfer to higher level of care. The concern is also she is in cardiogenic shock secondary to the NSTEMI and she remains on norepinephrine. (5) Diverticulitis Impression: Stable. She is n.p.o. for likely cardiac catheterization. Continue ceftriaxone and Flagyl. (6) GABRIEL (acute kidney injury) Impression: Her creatinine is back to baseline now. Initial injury was due to hypovolemia from dehydration. We will continue to monitor given to norepinephrine. 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 We have held her home Synthroid and resumed today at a lower dose of 75 mcg (8) Colitis Impression: CT suggested infection or inflammation of the ascending colon. She will need an outpatient colonoscopy for further evaluation to ensure there is no underlying mass. (9) Sacral decubitus ulcer, stage II Impression: Continue with repositioning and frequent turns.
[2021-03-25] MEDS ORDERED: ATORVASTATIN 40 MG TABLET PO SCH (21:00)
[2021-03-25 22:55] VITALS: BP 99/59
== END 2021-03-25 22:56 | disposition short-term general hospital (02) | DRG 682 ==
LOC: EDUNIT# → ED 19:00 → ICU 03-22 01:16
PROVIDERS: ADMIT Internal Medicine; ATTEND Internal Medicine
DX: A41.9 Sepsis, unspecified organism (principal); N17.9 Acute kidney failure, unspecified; R65.21 Severe sepsis with septic shock; R57.8 Other shock; I21.4 Non-ST elevation (NSTEMI) myocardial infarction; R05.9 Cough, unspecified; R07.9 Chest pain, unspecified; R11.2 Nausea with vomiting, unspecified; R19.7 Diarrhea, unspecified; R53.83 Other fatigue; I49.9 Cardiac arrhythmia, unspecified; I87.8 Other specified disorders of veins; D72.829 Elevated white blood cell count, unspecified; R94.4 Abnormal results of kidney function studies; R03.1 Nonspecific low blood-pressure reading; I50.21 Acute systolic (congestive) heart failure; Z87.891 Personal history of nicotine dependence; Z91.81 History of falling; S22.080A Wedge compression fracture of T11-T12 vertebra, initial encounter for closed fracture; K57.92 Diverticulitis of intestine, part unspecified, without perforation or abscess without bleeding; E03.9 Hypothyroidism, unspecified; E05.90 Thyrotoxicosis, unspecified without thyrotoxic crisis or storm; E11.9 Type 2 diabetes mellitus without complications; E86.0 Dehydration; E86.1 Hypovolemia; I48.91 Unspecified atrial fibrillation; I95.9 Hypotension, unspecified; K21.9 Gastro-esophageal reflux disease without esophagitis; K52.9 Noninfective gastroenteritis and colitis, unspecified; L89.152 Pressure ulcer of sacral region, stage 2; Z20.822 Contact with and (suspected) exposure to COVID-19; Z66 Do not resuscitate; Z79.84 Long term (current) use of oral hypoglycemic drugs; Z79.890 Hormone replacement therapy; Z79.899 Other long term (current) drug therapy; Z88.0 Allergy status to penicillin; Z88.1 Allergy status to other antibiotic agents; Z88.8 Allergy status to other drugs, medicaments and biological substances
CPT/HCPCS: 36415; 36556; 51702; 70450; 71045; 74176; 80048; 80053; 80076; 80162; 81001; 82330; 82550; 82803; 83605; 83735; 83880; 84100; 84132; 84439; 84443; 84484; 85025; 85610; 87040; 87086; 87150; 87493; 87631; 93005; 93306; 96361; 96365; 96366; 96368; 96375; 99285; 99291; A9270; J0282; J1650; J2060; J3370; J7120; 0202U